=== PATIENT | male | born 1955 | race African-American/Black ===

== ENCOUNTER 2018-08-05 05:38 | Inpatient (IN) | payer OTHER ==
[2018-08-05] VITALS (17 sets, daily range): BP systolic 128–154; BP diastolic 64–84
[~2018-08-05] VITALS: Ht 175.3 cm; Wt 90.7 kg
[~2018-08-05 05:38] MED LIST: AMLODIPINE BESYL5 MG ORAL; ASPIR 8181 MG ORAL; GABAPENTIN300 MG ORAL; HYDROCODON-ACE1 EA16 ORAL; HYTRIN10 MG PO; NAPROXEN250 M1 PO; RELAFEN500 MG PO
[2018-08-05] MEDS ORDERED: ceFAZolin sod 1 GM in D5W 55 ML IVPB ONE (07:00)
[2018-08-05] MEDS ORDERED: Thrombin 5000 units spray kit TOPIC ONE ×4 (07:05→12:59)
[2018-08-05] MEDS ORDERED: Ropivacaine 5mg/ml Vial 30ml INJ ONE (07:06)
[2018-08-05] MEDS ORDERED: Gelfoam Size TOPIC ONE ×5 (07:06→11:30)
[2018-08-05] MEDS ORDERED: Thrombin 5000 units TOPIC ONE ×4 (07:06→11:41)
[2018-08-05] MEDS ORDERED: Lidocaine 1% 10mg/ml/Epi 0.005mg/ml 30ml vial INJ ONE (07:06)
[2018-08-05] MEDS ORDERED: Gelfoam Absorbable 1gm powder pkt TOPIC ONE ×3 (07:06→09:34)
[2018-08-05] MEDS ORDERED: Bacitracin 50000 Units Vial ONE (07:07)
[2018-08-05] MEDS ORDERED: fentaNYL 100 mcg/2 mL IV ONE (07:07)
[2018-08-05] MEDS ORDERED: Midazolam 2mg/2ml Inj ONE (07:07)
[2018-08-05] MEDS ORDERED: Lidocaine 1% MPF 10mg/ml 5ml ONE (07:08)
[2018-08-05] MEDS ORDERED: Iothalamate Meglumine 60% 30ML INJ ONE ×2 (07:13→08:25)
--- NOTE | 2018-08-05 07:17 | Pre-Procedure Note/Attestation ---
Pre-Procedure Note/Attestation Complete Prior to Procedure Planned Procedure: bilateral Procedure Narrative: cystoscopy, placement of bilateral ureteral stents Indications for Procedure Pre-Operative Diagnosis: for identification of ureters during spine surgery Attestation I attest that I discussed the nature of the procedure; its benefits; risks and complications; and alternatives (and the risks and benefits of such alternatives ), prior to the procedure, with the patient (or the patient's legal access service representative). I attest that, if there was a reasonable possibility of needing a blood transfusion, the patient (or the patient's legal access service representative) was given the [facility] standardized written summary, pursuant to the Gilles Marianne Blood Safety Act ([place] Health and Safety Code # 1645, as amended). I attest that I re-evaluated the patient just prior to the surgery and that there has been no change in the patient's H&P, except as documented below: Graeme Chaparro MD Aug 05, 2018 07:17
[2018-08-05] MEDS ORDERED: Succinylcholine 20mg/ml 10ml vial ONE (07:24)
[2018-08-05] MEDS ORDERED: Zemuron 50mg/5ml Inj IV ONE ×2 (07:24→08:53)
[2018-08-05] MEDS ORDERED: LR 1000ml ONE (07:30)
[2018-08-05] MEDS ORDERED: Sterile Water Irrig 1000ml IRRIG ONE (07:30)
[2018-08-05] MEDS ORDERED: Sterile Water For Irrig 2000ml IRRIG ONE (07:30)
[2018-08-05] MEDS ORDERED: Propofol 1,000mg/ 100ml btl IV ONE (07:30)
[2018-08-05] MEDS ORDERED: Neostigmine 1mg/ml 10ml Inj ONE (07:30)
[2018-08-05] MEDS ORDERED: Heparin 5000 units/ml inj ONE (07:35)
[2018-08-05] MEDS ORDERED: ePHEDrine 50mg/ml Inj ONE (08:28)
--- NOTE | 2018-08-05 08:31 | Consultation ---
DATE OF CONSULTATION: 08/05/2018 CONSULTING PHYSICIAN: Graeme Chaparro M.D. REFERRING PHYSICIAN: Gamaliel Branch M.D. REASON FOR CONSULTATION: For evaluation and placement of ureteral stents for spine surgery. HISTORY OF PRESENT ILLNESS: This is a 63-year-old gentleman. He has a history of work-related back injury. He has a previous back surgery. He is being brought back for a L5-S1 decompression. I was asked to place ureteral stents. PAST MEDICAL HISTORY: Significant for above. The patient also has history of prostate cancer, status post radiation in 2016. MEDICATIONS: His medications list was reviewed. ALLERGIES: No known drug allergies. PHYSICAL EXAMINATION: ABDOMEN: Soft. No CVA tenderness. LABORATORY AND DIAGNOSTIC DATA: His preoperative diagnostic studies were reviewed. He did have 1+ to 2+ blood in his recent UA. His creatinine is 1.11. IMPRESSION: The patient is to undergo spine surgery. He also has a history of prostate cancer and radiation and positive urine. PLAN: I was asked to place ureteral stents preoperatively for identification of the ureter during the surgery. I did speak to Dr. Branch and Dr. Schmid, they have requested placement of bilateral stents. I did discuss this with the patient in extensive detail including my involvement with possible risks and complications, but all his questions were answered. I will plan to proceed. Thank you for this consultation. Graeme Chaparro M.D. DR: CAROLYNE JOB#: [id number] CC:
--- NOTE | 2018-08-05 09:08 | Anethesia Preoperative Eval ---
Anesthesia Pre-op PMH/ROS General Date of Evaluation: Aug 05, 2018 Time of Evaluation: 07:20 Anesthesiologist: Hazel ASA Score: ASA 2 Mallampati Score Class I : Soft palate, uvula, fauces, pillars visible Class II: Soft palate, uvula, fauces visible Class III: Soft palate, base of uvula visible Class IV: Only hard plate visible Mallampati Classification: Class II Surgeon: Jose Carlos Diagnosis: Lumbar radiculopathy Surgical Procedure: Ant. lumbar discectomy fusion, revision of posterior lumbar hardwear Anesthesia History: none Family History: no anesthesia problems Allergies: Coded Allergies: No Known Allergies (Unverified , 08/04/18) Patient NPO?: Yes NPO Date: Aug 04, 2018 NPO Time: 2100 Past Medical History Cardiovascular: Reports: HTN; Denies: CAD, UT, valve dz, arrhythmia, other Pulmonary: Denies: asthma, COPD, JOSSELYN, other Gastrointestinal/Genitourinary: Reports: GERD, other - prostate CA s/p radiation treatment; Denies: CRI, ESRD Neurologic/Psychiatric: Reports: other - chronic pain; Denies: dementia, CVA, depression/anxiety, TIA Endocrine: Reports: DM - borderline; Denies: hypothyroidism, steroids, other HEENT: Denies: cataract (L), cataract (R), glaucoma, [place] (L), [place] (R), other Hematology/Immune: Denies: anemia, DVT, bleeding disorder, other Musculoskeletal/Integumentary: Denies: OA, RA, DJD, DDD, edema, other PMH Narrative: as above PSxH Narrative: Posterior lumbar fusion Anesthesia Pre-op Phys. Exam Physician Exam Last Vital Signs Date Time Temp Pulse Resp B/P (MAP) Pulse Ox O2 Delivery O2 Flow Rate FiO2 08/05/18 06:26 97.7 74 20 154/84 (107) 99 08/05/18 06:11 Room Air Constitutional: NAD Neurologic: CN 2-12 intact Cardiovascular: RRR Respiratory: CTA Gastrointestinal: S/NT/ND Airway Exam Mallampati Score: Class III MO: limited Neck: short stiff ROM: limited Teeth: missing, broken Dentures: no upper, no lower Anesthesia Pre-op A/P Labs see chart Studies Pre-op Studies: EKG - NSR Risk Assessment & Plan Assessment: ASA 2 Plan: GA with ETT neuromonitoring, supine and prone positions Status Change Before Surgery: No Pre-Antibiotics Drug: Ancef 2gr. Given Within 1 Hr of Incision: Yes Time Given: 08:25 Alirio Oliva MD Aug 05, 2018 09:08
[2018-08-05] MEDS ORDERED: Acetaminophen (Non formulary) 100 ML IV ONE (09:15)
--- NOTE | 2018-08-05 09:18 | Pre-Procedure Note/Attestation ---
Pre-Procedure Note/Attestation Complete Prior to Procedure Procedure Narrative: L5s1 Ant post fusion with decompression l4-s1, HWR l45 Indications for Procedure Pre-Operative Diagnosis: sp fusion L45 with discopathy l5s1 / stenosis Attestation I attest that I discussed the nature of the procedure; its benefits; risks and complications; and alternatives (and the risks and benefits of such alternatives ), prior to the procedure, with the patient (or the patient's legal access representative). I attest that, if there was a reasonable possibility of needing a blood transfusion, the patient (or the patient's legal access representative) was given the [facility] standardized written summary, pursuant to the Gilles Marianne Blood Safety Act ([place] Health and Safety Code # 1645, as amended). I attest that I re-evaluated the patient just prior to the surgery and that there has been no change in the patient's H&P, except as documented below: Gamaliel Branch MD Aug 05, 2018 09:17
[2018-08-05] MEDS ORDERED: Sodium Chloride 10ml vial INJ ONE ×2 (09:29→10:29)
[2018-08-05] MEDS ORDERED: Bacitracin 50000 Units Vial IRRIG ONE ×2 (09:31→14:12)
[2018-08-05] MEDS ORDERED: NS Irrig 1000ml IRRIG ONE ×2 (09:32→14:12)
[2018-08-05] MEDS ORDERED: Morphine Sulfate 10mg/ml Inj ONE (10:26)
--- NOTE | 2018-08-05 10:39 | Brief Operative Note ---
Immediate Post Operative Note Operative Note Pre-op Diagnosis: sp fusion L45 with discopathy l5s1 / stenosis Procedure: ant post fusion l5s1, decompression L45S1 R side, HWR L45 Post-op Diagnosis: same as pre-op Findings: consistent w/pre-op dx studies Surgeon: christin Additional Surgeons: Krysta Schmid Anesthesiologist: marty Anesthesia: general Specimen: yes Complications: none Condition: stable Fluids: 1500 Estimated Blood Loss: volume - 150 Drains: hemovac Implant(s) used?: Yes - 4web cage, iminent spine plate, ISP dual lamina, signafuse, bmp Gamaliel Branch MD Aug 05, 2018 10:39
[2018-08-05] MEDS ORDERED: LR 1000ml 1,000 ML IVLG SCH (11:10)
[2018-08-05] MEDS ORDERED: Glycopyrrolate 0.2mg/ml 1ml Vial ONE (11:14)
[2018-08-05] MEDS ORDERED: Meperidine 50mg/ml Inj(FOR RIGORS ONLY) IV PRN (11:15)
[2018-08-05] MEDS ORDERED: Ketorolac 30mg Inj IV PRN (11:15)
[2018-08-05] MEDS ORDERED: fentaNYL 100 mcg/2 mL IV PRN (11:15)
[2018-08-05] MEDS ORDERED: DiphenhydrAMINE 50mg/ml Inj IVP PRN (11:15)
[2018-08-05] MEDS ORDERED: Propofol 200mg/20ml IV ONE ×2 (11:18→12:11)
[2018-08-05] MEDS ORDERED: Bupivacaine w/Epi 0.5% 30ml Vial INJ ONE (11:25)
[2018-08-05] MEDS ORDERED: Vancomycin 1gm inj IVPB ONE ×2 (13:02→14:13)
--- NOTE | 2018-08-05 14:01 | Operative Note - Dictated ---
DATE OF OPERATION: 08/05/2018 SURGEON: Gamaliel Branch M.D. ADDITIONAL SURGEONS: 1. Dheeraj Schmid M.D. 2. Graeme Chaparro M.D. PREOPERATIVE DIAGNOSES: 1. Status post L4-L5 spinal fusion with residual L4-L5 and L5-S1 right-sided stenosis with advanced discogenic collapse, L5-S1. 2. Status post prior radiation for prostate CA requiring stent placement for safe approach to the spine. OPERATION PERFORMED: 1. Wide and radical discectomy L5-S1. 2. Interbody fusion L5-S1 using 4WEB cage/BMP/local autograft/Signafuse bone. 3. Anterior plating using Eminent Spine Fang plate. 4. Use of fluoroscopy. ESTIMATED BLOOD LOSS: Minimal. COMPLICATIONS: None. INDICATIONS: The patient is a very pleasant gentleman, who sustained an injury to his lower back requiring spinal fusion at L4-L5. Over time, he had developed advanced discogenic collapse at L5-S1 with radiculopathic findings on the right lower extremity, L4-5, L5-S1. Surgical options were recommended. The patient elected to proceed with anterior interbody fusion followed by posterior decompression and instrumentation. The procedure was confounded by the fact that he had had prior anterior pelvic radiation for prostate CA necessitating the placement of stents in the ureters to avoid possible damage to the ureters during exposure. The patient elected to proceed. RISKS NOTE: The patient was explained in detail, risks and benefits of surgery to include, but not be limited to those of bleeding, infection, damage to nerves, vessels, tendons, and anesthetic risks including allergic reaction, aspiration, and possibly . OPERATIVE PROCEDURE IN DETAIL: The patient was taken to the operating suite. After general endotracheal anesthesia was obtained, he was placed into lithotomy position and a cystoscopy was performed and stent placement was performed by Dr. Chaparro, into the bilateral ureters. At this point, once the stents were placed, the patient was repositioned on the radiolucent table. The abdomen was prepped and draped in usual sterile fashion and anterior retroperitoneal approach was performed by Dr. Schmid and this will be dictated separately. At this point, exposure of the L5-S1 level was safely achieved. Wide and radical discectomy was performed using scalpel, curettes, pituitaries, Kerrison punches. Interbody spacers were placed to obtain adequate distraction. At this point, once the distraction was achieved and the lateral recesses of the disc were cleaned up, decision was made to put certain trials in. The ideal trial was a 10 mm high x 12-degree lordotic 4WEB cage. Due to the patient's history of L5 pelvic irradiation, it was elected to, in addition to Signafuse to also place a BMP so as to ensure a solid anterior fusion. The appropriate size cage was chosen and inserted and fluoroscopically was confirmed to be in good position with excellent reduction of the disc height loss. At this juncture, due to the extensive scarring from the vena cava, decision was made to place a plate at the S1 level and angulate cephalad to prevent dislodgement of the cage. The anterior osteophytes were removed extensively so as to have flush placement of the cage. Additional Signafuse was then placed along the anterior and lateral aspects of the cage. At this point, meticulous hemostasis was achieved. Closure will be dictated separately by Dr. Schmid. Gamaliel Branch M.D. DR: SUZANNE JOB#: [id number] CC:
--- NOTE | 2018-08-05 14:10 | Immediate Post-Op Evaluation ---
Immediate Post-Op Evalulation Immediate Post-Op Evalulation Procedure: Anterior L5-S1 discectomy fusion, posterior L5-S1 revision of hardwear with Date of Evaluation: Aug 05, 2018 Time of Evaluation: 14:09 IV Fluids: 1600 Blood Products: Albumin 250 Estimated Blood Loss: 200 Urinary Output: 150 Blood Pressure Systolic: 132 Blood Pressure Diastolic: 64 Pulse Rate: 86 Respiratory Rate: 22 O2 Sat by Pulse Oximetry: 99 Temperature (Fahrenheit): 98.3 Pain Score (1-10): 1 Nausea: No Vomiting: No Complications none Patient Status: reacts, patent, extubated, none Hydration Status: adequate Alirio Oliva MD Aug 05, 2018 14:10
[2018-08-05] MEDS ORDERED: Rate Change PCA 1 Each MISC PRN (15:45)
--- NOTE | 2018-08-05 15:59 | Diagnostic Imaging Report ---
INDICATION: Pain, intraoperative TECHNIQUE: Intraoperative imaging Fluoroscopy time: 34.9 seconds Total dose: 15.53 mGy Total number of images: 5 COMPARISON: None FINDINGS: Intraoperative images demonstrate a localizer tool projected anterior to the L5-S1 disc. Intraspinous device already in place. Also already in place is a disc spacer and lateral fusion hardware at L4-5. Subsequent images demonstrate placement of a disc spacer and anterior fusion hardware at L5-S1., Removal of the L4-5 interspinous device, placement of an L5-S1 interspinous device IMPRESSION: Intraoperative imaging, as described
--- NOTE | 2018-08-05 16:01 | Diagnostic Imaging Report ---
INDICATION: Pain, intraoperative TECHNIQUE: Intraoperative imaging Fluoroscopy time: 95.5 seconds Total dose: 18.3 mGy Total number of images: 7 COMPARISON: None FINDINGS: Placement of bilateral nephroureteral stents and opacification of the bilateral proximal ureters and renal collecting systems is documented IMPRESSION: Intraoperative imaging, as described
[2018-08-05] MEDS ORDERED: PCA HYDROmorphone 30mg/30ml Syr IV PRN (16:30)
[2018-08-05] MEDS ORDERED: Naloxone 0.4mg/ml Inj IV PRN (16:30)
[2018-08-05] MEDS ORDERED: Milk of Magnesia 30ml Ud ORAL PRN (18:00)
[2018-08-05] MEDS ORDERED: Metoclopramide 10mg/2ml Inj IVP PRN (18:00)
[2018-08-05] MEDS: Docusate 100mg cap ORAL SCH (18:02)
[2018-08-05] MEDS: D5 1/2NS 1,000 ML IV SCH (18:02)
[2018-08-05] MEDS ORDERED: Chloraseptic Spray 20mL Bottle ORAL SCH (18:30)
[2018-08-05] MEDS ORDERED: Chloraseptic Spray 20mL Bottle ORAL PRN (18:30)
[2018-08-05] MEDS: ceFAZolin sod 1 GM in D5W 55 ML IV SCH ×2 (18:59→23:44)
[2018-08-05] MEDS: PCA shift volume MISC SCH (19:00)
[2018-08-05] MEDS ORDERED: PCA Education Pamphlet MISC ONE (20:00)
[2018-08-05] MEDS: Tamsulosin 0.4mg cap ORAL SCH (21:21)
[2018-08-06] MEDS: D5 1/2NS 1,000 ML IV SCH ×3 (02:54→21:48)
[2018-08-06] MEDS: HYDROmorphone 1mg/ml Carpuject SUBQ PRN ×3 (03:28→20:47)
[2018-08-06 04:48] VITALS: BP 139/65
--- NOTE | 2018-08-06 05:15 | Consultation ---
DATE OF CONSULTATION: 08/05/2018 CONSULTING PHYSICIAN: Dante Patterson M.D. REFERRING PHYSICIAN: Gamaliel Branch M.D. REASON FOR CONSULTATION: Acute pain consult. HISTORY OF PRESENT ILLNESS: Dear Dr. Gamaliel Branch, Thank you kindly for consulting me to evaluate and render an opinion as to how to proceed in the management of the patient's acute postoperative lumbar spine pain after multiple level lumbar spine fusion surgery with instrumentation today. The patient is a pleasant 63-year-old -[place] gentleman, who injured his lumbar spine in a work-related injury. Today, he underwent extensive lumbar spine fusion surgery via the anterior-approach and posterior-approach. He complains significant discomfort postoperatively. You consulted me to help with his pain control. I saw the patient at bedside. Discussed the case with the recovery room nurse, ELE Morrison, along with yourself, Dr. Branch, and the hospital pharmacist, Kareem. I spent over 75 minutes in consultation with an additional 30 minutes in medical record review. Multiple records were reviewed from today's date of surgery at [facility] including consent for surgical treatment, consent for anesthesia, consent for blood products, medication administration record, medication reconciliation order form, PACU record, PACU orders, anesthesia record, pre and post anesthesia evaluation record, postoperative spine surgery operative report along with postoperative spine surgery physician orders by Dr. Gamaliel Branch, guidelines for prophylactic antibiotics, and guidelines for DVT prophylaxis. for cognitive disability, , initial nursing assessment, 24-hour medical/surgical flow sheet, vital sign documentation sheet, further reviewed include preoperative History and Physical by Lew Tran on 07/29/2018 along with laboratory studies and urine toxicology reports. Multiple records reviewed from Dr. Gamaliel Branch's outpatient clinic including his progress report on 07/22/2018. I reviewed utilization review and surgical authorization records from insurance carrier, [employer], dated 05/14/2018, authorizing extensive lumbar spine fusion surgery with instrumentation as certified. PAST MEDICAL HISTORY: 1. Acute postoperative lumbar spine pain, status post multiple level anterior-approach and posterior-approach. 2. Lumbar spine fusion surgery with instrumentation by Dr. Gamaliel Branch in July 2018. 3. Work-related injury. 4. Chronic pain syndrome. 5. Hypertension. 6. BPH. 7. Borderline diabetes. MEDICATIONS: At home include hydrocodone 7.5 mg b.i.d., Neurontin 300 mg b.i.d., topical marijuana cream at least once per week, terazosin, Norvasc, NSAIDs, and baby aspirin. PAST SURGICAL HISTORY: Previous back surgery in November 2014. FAMILY HISTORY: Prostate disease. SOCIAL HISTORY: The patient denies tobacco or alcohol usage. He does use topical marijuana cream at least once per week. He is accompanied at the bedside by his brother. ALLERGIES: No known drug allergies. REVIEW OF SYSTEMS: Per Dr. Tran. PHYSICAL EXAMINATION: VITAL SIGNS: Age 63, height 5 feet 8 inches, weight 181 pounds, and body mass index 27. Vital signs in the medial record. HEENT: Normocephalic and atraumatic. Poor dentition. Extraocular muscles intact. No Cochran's palsy. No Princess syndrome. No nuchal rigidity. CHEST: Clear to auscultation. Bibasilar crackles likely secondary to postoperative atelectasis. HEART: Regular rate and rhythm. Positive S4. Normal S1 and S2. No S3 appreciated. ABDOMEN: Painful by incision area with minimal distention appreciated. No rebound or guarding. EXTREMITIES: Lumbar spine, painful by midline without any significant paraspinal muscle spasms noted. Moving all extremities x4. GENITOURINARY: Acosta catheter in place. NEUROLOGIC: Detailed neurologic exam per Dr. Gamaliel Branch. LABORATORY AND DIAGNOSTIC DATA: Diagnostic testing shows preoperative laboratory studies on 07/29/2018, PTT 23. INR 1.1. Sodium 142, potassium 3.5, chloride 104, bicarbonate 30, BUN 10, and creatinine 1.1. Calcium 9.2. Total protein 6.9 and albumin 4.1. AST 16, ALT 15, and total bilirubin 0.5. White count 4, hematocrit 38, and platelets 200,000. Urine toxicology is positive for marijuana. A 12-lead EKG shows normal sinus rhythm, left axis deviation, right bundle-branch block, and heart rate 72. Preoperative chest x-ray shows no acute cardiopulmonary disease, dated 07/29/2018. MRI of lumbar spine dated 04/01/2018 impression, previous posterior fusion, L4-L5; L5 retrolisthesis on S1 measuring 3 to 4 mm with a 4 mm diffuse broad-based disk bulge; and L2-L3 and L3-L4 with 3 to 4 mm asymmetric broad-based disk bulges. IMPRESSION: 1. Acute postoperative lumbar spine pain, status post multiple level anterior-approach and posterior-approach. 2. Lumbar spine fusion surgery with instrumentation by Dr. Gamaliel Branch in July 2018. 3. Work-related injury. 4. Chronic pain syndrome. 5. Hypertension. 6. BPH. 7. Borderline diabetes. TREATMENT AND RECOMMENDATIONS: After this extensive revision lumbar spine surgery with fusion and instrumentation today, I spoke with the hospital pharmacist, Kareem, to initiate Dilaudid LEGAL ADVISOR. I started with 0.2 mg demand button dose along with a 10-minute lockout and 4 mg 4-hour limit. There will be no underlying basal rate or continuous rate to reduce the risk for respiratory depression in this elderly gentleman. I restarted his baseline Neurontin, which he uses chronically for his chronic pain syndrome. The patient does use Stonewall at least twice per day. I will increase the dosing to 10 mg here in the hospital at a frequency of one tablet orally every 3 hours p.r.n. for mild pain. I have added a breakthrough dose of Dilaudid 1 mg subcutaneously every 3 hours p.r.n. for severe breakthrough pain. The patient does not use muscle relaxants or benzodiazepines. Preoperatively, I would avoid these agents for now. I would concentrate on his current Mu-opioid narcotic analgesics for primary pain control. I did suggest the patient that we use the Marinol here in the hospital since he does use marijuana at least once per week. At this time, the patient did decline a trial, but if the patient's pain control seems to be poorly managed, I would consider using oral Marinol later during this hospitalization. I have ordered incentive spirometer to encourage good pulmonary toilet. I will defer DVT prophylaxis to the surgeon. The patient will need a prescription for Stonewall at the time of discharge as he does fill his prescription normally with his outpatient primary doctor, but his supply is running low. Dante Patterson M.D. DR: MARYA JOB#: [id number] CC:
[2018-08-06 06:39] LABS: BASOPHILS % (AUTO) 0.6 % (0.0-2.0); EOSINOPHILS % (AUTO) 0.1 % (0.0-3.0); HEMATOCRIT 34.7 % (42.0-52.0); HEMOGLOBIN 11.8 G/DL (14.2-18.0); LYMPHOCYTES % (AUTO) 19.2 % (20.0-45.0); MEAN CORPUSCULAR VOLUME 92 FL (80-99); MONOCYTES % (AUTO) 9.7 % (1.0-10.0); NEUTROPHILS % (AUTO) 70.5 % (45.0-75.0); PLATELET COUNT 151 K/UL (150-450); RED BLOOD COUNT 3.79 M/UL (4.70-6.10); RED CELL DISTRIBUTION WIDTH 10.7 % (11.6-14.8); WHITE BLOOD COUNT 7.1 K/UL (4.8-10.8)
[2018-08-06] MEDS: PCA shift volume MISC SCH ×2 (07:00→19:12)
[2018-08-06 07:22] LABS: ANION GAP 7 mmol/L (5-15); CARBON DIOXIDE 29 MMOL/L (21-32); CHLORIDE 109 MMOL/L (98-107); POTASSIUM 3.2 MMOL/L (3.5-5.1); SODIUM 144 MMOL/L (136-145)
--- NOTE | 2018-08-06 07:34 | Brief Operative Note ---
Immediate Post Operative Note Operative Note Pre-op Diagnosis: for identification of ureters during spine surgery Procedure: cysto, placement of bilateral ureteral stents, retrograde pyelograms, cystogram Post-op Diagnosis: same as pre-op Surgeon: arabella Anesthesiologist: marty Anesthesia: general Specimen: none Complications: none Condition: stable Fluids: NS Estimated Blood Loss: minimal Drains: none Implant(s) used?: No Graeme Chaparro MD Aug 06, 2018 07:34
--- NOTE | 2018-08-06 07:37 | Urology Progress Note ---
Assessment/Plan Assessment/Plan POD # 1, bilateral ureteral stents urinary retention prostate ca hx/XRT cont flomax plan voiding trial tomorrow morning Subjective Allergies: Coded Allergies: No Known Allergies (Unverified , 08/04/18) Subjective feels fair Objective Last 24 Hour Vital Signs Date Time Temp Pulse Resp B/P (MAP) Pulse Ox O2 Delivery O2 Flow Rate FiO2 08/06/18 04:48 98.5 81 19 139/65 (89) 100 08/06/18 04:00 15 08/06/18 00:00 15 08/05/18 21:21 99.2 82 18 144/68 (93) 98 08/05/18 21:00 Nasal Cannula 3.0 08/05/18 20:00 98.4 83 19 138/73 (94) 97 08/05/18 20:00 15 08/05/18 17:41 99.9 98 20 136/72 (93) 99 08/05/18 16:56 13 08/05/18 16:56 98.6 89 20 136/71 100 Nasal Cannula 3 08/05/18 16:15 91 18 139/76 100 Nasal Cannula 3 08/05/18 16:00 98 17 136/70 100 Nasal Cannula 3 08/05/18 15:53 13 08/05/18 15:45 98.6 94 17 134/72 100 Nasal Cannula 3 08/05/18 15:30 98.4 89 17 140/72 100 Nasal Cannula 3 08/05/18 15:20 87 15 128/64 100 Nasal Cannula 3 08/05/18 15:05 88 17 139/74 100 Nasal Cannula 3 08/05/18 14:51 91 15 147/77 100 Simple Mask 6 08/05/18 14:36 92 18 144/75 100 Simple Mask 6 08/05/18 14:20 95 17 142/74 100 Simple Mask 6 08/05/18 14:10 95 16 131/67 100 Simple Mask 6 08/05/18 14:10 86 22 99 08/05/18 14:06 91 22 135/64 100 Simple Mask 6 08/05/18 14:01 98.6 94 21 132/64 100 Simple Mask 6 Intake and Output 08/05/18 08/06/18 19:00 07:00 Intake Total 2400 ml 1100 ml Output Total 720 ml 1320 ml Balance 1680 ml -220 ml Intake IV Total 2150 ml 1100 ml Other 250 ml Output Urine Total 300 ml 1200 ml Drainage Total 140 ml 120 ml Estimated Blood Loss 200 ml Other 80 ml Current Medications Medications (Trade) Dose Ordered Sig/Fanta Route PRN Reason Start Time Stop Time Status Last Admin Dose Admin Acetaminophen (Tylenol) 650 mg Q4H PRN ORAL headache or temp>101 08/05/18 18:00 09/04/18 17:59 Acetaminophen/ Hydrocodone Bitart (Bricelyn 10/325) 1 tab Q3H PRN ORAL Moderate breakthrough pain 08/05/18 18:00 08/12/18 17:59 Al Hydroxide/Mg Hydroxide (Mylanta) 30 ml Q6H PRN ORAL gerd/dyspepsia 08/05/18 18:00 09/04/18 17:59 Cefazolin Sodium 1 gm/Dextrose 55 ml @ 110 mls/hr Q8HR@0030,0830,1630 IV 08/05/18 18:30 08/06/18 08:59 08/05/18 23:44 Clonidine HCl (Catapres Tab) 0.1 mg Q8H PRN ORAL SBP>160mmHg 08/05/18 18:00 09/04/18 17:59 Dextrose/Sodium Chloride 1,000 ml @ 100 mls/hr Q10H IV 08/05/18 18:00 09/04/18 17:59 08/06/18 02:54 Diphenhydramine HCl (Benadryl) 25 mg Q6H PRN ORAL Itching 08/05/18 18:00 09/04/18 17:59 Docusate Sodium (Colace) 100 mg TWICE A DAY ORAL 08/05/18 18:00 09/04/18 17:59 08/05/18 18:02 Gabapentin (Neurontin) 300 mg Q12HR ORAL 08/05/18 18:00 09/04/18 17:59 08/05/18 18:09 Hydromorphone HCl 30 ml @ 0 mls/hr Q24H PRN IV For Pain 08/05/18 16:30 08/07/18 16:29 08/05/18 15:53 Hydromorphone HCl (Dilaudid) 1 mg Q3H PRN SUBQ Severe Breakthru Pain (>7) 08/05/18 18:00 08/12/18 17:59 08/06/18 06:28 Magnesium Hydroxide (Mom) 30 ml QIDPRN PRN ORAL Constipation 08/05/18 18:00 09/04/18 17:59 Miscellaneous Medication (RETURNED MATERIALS INSPECTOR Rate Change) 1 ea DAILY PRN MISC RETURNED MATERIALS INSPECTOR RATE CHANGE 08/05/18 15:45 08/07/18 15:44 Miscellaneous Medication (RETURNED MATERIALS INSPECTOR shift volume) 1 ea Q12HR@0700,1900 MISC 08/05/18 19:00 08/07/18 18:59 08/05/18 19:00 Naloxone HCl (Narcan) 0.1 mg PRN IV . 08/05/18 16:30 08/07/18 16:29 Ondansetron HCl (Zofran) 4 mg Q4H PRN IVP Nausea & Vomiting 08/05/18 18:00 09/04/18 17:59 08/06/18 03:27 Pantoprazole (Protonix) 40 mg BEDTIME ORAL 08/05/18 21:00 09/04/18 20:59 08/05/18 21:21 Phenol/Menthol (Chloraseptic) 1 spray 1749 ORAL 08/05/18 18:30 09/04/18 19:30 Phenol/Menthol (Chloraseptic) 1 spray Q3H PRN ORAL sore throat 08/05/18 18:30 09/04/18 18:29 08/05/18 18:59 Promethazine HCl (Phenergan) 12.5 mg Q8HR PRN IM Nausea & Vomiting 08/05/18 18:00 09/04/18 17:59 Tamsulosin HCl (Flomax) 0.4 mg BEDTIME ORAL 08/05/18 21:00 09/04/18 20:59 08/05/18 21:21 Laboratory Tests 08/06/18 05:20: White Blood Count 7.1, Red Blood Count 3.79L, Hemoglobin 11.8L, Hematocrit 34.7L , Mean Corpuscular Volume 92, Mean Corpuscular Hemoglobin 31.1H, Mean Corpuscular Hemoglobin Concent 34.0, Red Cell Distribution Width 10.7L, Platelet Count 151, Mean Platelet Volume 6.3L, Neutrophils (%) (Auto) 70.5, Lymphocytes (%) (Auto) 19.2L, Monocytes (%) (Auto) 9.7, Eosinophils (%) (Auto) 0.1, Basophils (%) (Auto) 0.6, Sodium Level 144, Potassium Level 3.2L, Chloride Level 109H, Carbon Dioxide Level 29, Anion Gap 7, Blood Urea Nitrogen [Pending] , Creatinine [Pending], Estimat Glomerular Filtration Rate [Pending], Glucose Level [Pending], Calcium Level [Pending] Height (Feet): 5 Height (Inches): 9.00 Weight (Pounds): 200 Objective urine is grossly yellow ChanoshGraeme mckinley MD Aug 06, 2018 07:37
[2018-08-06 07:42] LABS: BLOOD UREA NITROGEN 9 mg/dL (7-18); CREATININE 1.1 MG/DL (0.55-1.30)
--- NOTE | 2018-08-06 08:27 | Orthopedic Spine Progress Note ---
Ortho Spine - Progress Note Subjective Symptoms: c/o post-op back pain, improved - as compared to pre-op Objective Vital Signs: Last 24 Hour Vital Signs Date Time Temp Pulse Resp B/P (MAP) Pulse Ox O2 Delivery O2 Flow Rate FiO2 08/06/18 08:16 Nasal Cannula 3.0 08/06/18 08:00 18 08/06/18 04:48 98.5 81 19 139/65 (89) 100 08/06/18 04:00 15 08/06/18 00:00 15 08/05/18 21:21 99.2 82 18 144/68 (93) 98 08/05/18 21:00 Nasal Cannula 3.0 08/05/18 20:00 98.4 83 19 138/73 (94) 97 08/05/18 20:00 15 08/05/18 17:41 99.9 98 20 136/72 (93) 99 08/05/18 16:56 13 08/05/18 16:56 98.6 89 20 136/71 100 Nasal Cannula 3 08/05/18 16:15 91 18 139/76 100 Nasal Cannula 3 08/05/18 16:00 98 17 136/70 100 Nasal Cannula 3 08/05/18 15:53 13 08/05/18 15:45 98.6 94 17 134/72 100 Nasal Cannula 3 08/05/18 15:30 98.4 89 17 140/72 100 Nasal Cannula 3 08/05/18 15:20 87 15 128/64 100 Nasal Cannula 3 08/05/18 15:05 88 17 139/74 100 Nasal Cannula 3 08/05/18 14:51 91 15 147/77 100 Simple Mask 6 08/05/18 14:36 92 18 144/75 100 Simple Mask 6 08/05/18 14:20 95 17 142/74 100 Simple Mask 6 08/05/18 14:10 95 16 131/67 100 Simple Mask 6 08/05/18 14:10 86 22 99 08/05/18 14:06 91 22 135/64 100 Simple Mask 6 08/05/18 14:01 98.6 94 21 132/64 100 Simple Mask 6 I&O: Intake and Output 08/05/18 08/06/18 19:00 07:00 Intake Total 2400 ml 1100 ml Output Total 720 ml 1320 ml Balance 1680 ml -220 ml Intake IV Total 2150 ml 1100 ml Other 250 ml Output Urine Total 300 ml 1200 ml Drainage Total 140 ml 120 ml Estimated Blood Loss 200 ml Other 80 ml Wound: clean, intact Drains: hemovac Neuro Status: normal Assessment Procedure Performed: ant post fusion l5s1, decompression L45S1 R side, HWR L45 Plan Plan: PT, pain management, continue antibiotics, continue drain Gamaliel Branch MD Aug 06, 2018 08:27
[2018-08-06] MEDS: ceFAZolin sod 1 GM in D5W 55 ML IV SCH (08:39)
[2018-08-06] MEDS: Docusate 100mg cap ORAL SCH ×2 (08:46→17:16)
[2018-08-06 09:00] VITALS: BP 131/62
[2018-08-06 10:14] LABS: APPEARANCE,URINE SLIGHTLY CLOUDY; BILIRUBIN, URINE NEGATIVE (NEGATIVE); COLOR,URINE PALE YELLOW; GLUCOSE, URINE (UA) NEGATIVE (NEGATIVE); KETONES,URINE NEGATIVE (NEGATIVE); LEUKOCYTE ESTERASE ,URINE 2+ (NEGATIVE); NITRITE,URINE NEGATIVE (NEGATIVE); PH,URINE 6 (4.5-8.0); PROTEIN,URINE 3+ (NEGATIVE); UROBILINOGEN,URINE NORMAL MG/DL (0.0-1.0)
[2018-08-06 12:30] VITALS: BP 152/59
--- NOTE | 2018-08-06 13:47 | Diagnostic Imaging Report ---
Indication: Chest pain Technique: One view of the chest Comparison: none Findings: Lungs and pleural spaces are clear. Heart size is normal Impression: No acute process
[2018-08-06] MEDS: ceFAZolin sod 1 GM in D5W 55 ML IVPB SCH ×2 (15:13→21:41)
--- NOTE | 2018-08-06 15:30 | Operative Note - Dictated ---
DATE OF OPERATION: 08/05/2018 PREOPERATIVE DIAGNOSIS: The patient with history of radiculopathy, previous lumbar fusion, and discogenic disease. He is to undergo L5-S1 diskectomy with fusion. I was asked to place bilateral ureteral stents for identification of the ureter during the procedure. POSTOPERATIVE DIAGNOSIS: The patient with history of radiculopathy, previous lumbar fusion, and discogenic disease. He is to undergo L5-S1 diskectomy with fusion. I was asked to place bilateral ureteral stents for identification of the ureter during the procedure. PROCEDURE PERFORMED: 1. Cystoscopy. 2. Urethral calibration. 3. Placement of bilateral open-ended ureteral stents. 4. Bilateral retrograde pyelogram. 5. Cystogram. OPERATING SURGEON: Graeme Chaparro M.D. ANESTHESIOLOGIST: Alirio Oliva M.D. ANESTHESIA: General. INDICATION FOR PROCEDURE: This is a pleasant 63-year-old male. He has a history of work related back injury. He has had previous lumbar fusions. He still has a discogenic collapse and he is to undergo the above procedure by Dr. Branch. The patient does have a history of prostate cancer. He has had external beam radiation a couple years ago. I was asked to place bilateral open-ended stents for identification of the ureter during the procedure. The nature of my involvement with the procedure was discussed with the patient extensively. Possible risks and complications of bleeding, infection, anesthesia, damage to the urethra, bladder, ureter, and need for further surgery, etc discussed. No guarantees were given or implied. FINDINGS: The patient had some mild radiation changes of his prostate and bladder. Bilateral open-ended stents were placed. PROCEDURE IN DETAIL: Informed consent was obtained from the patient. The patient was brought to the operative room and then placed in the supine position. After successful general anesthesia was induced, the patient was placed in a modified dorsal lithotomy position and genitalia was then prepped and draped in the usual fashion. Preoperative IV antibiotics were administered. Time-out was performed. The patient had some meatal stenosis, which was gently dilated. Cystoscopy was then performed. The urethra was slightly stenotic, but I was able to get through that without difficulty. Prostate was moderately obstructive. Fossa was about 3 centimeters. It was slightly friable consistent with previous radiation. I was able to gain access to the bladder. The bladder was slightly trabeculated. Some mild mucosal erythema again consistent with previous radiation changes. He did have some distortion of its anatomy in the trigone. His orifices were slightly stenotic. At this point, the left ureteral orifice was cannulated with open-ended catheter. This was 6-Martiniquais catheter. Angled wire was then passed up and I was able to easily advance open-ended catheter up into the kidney over the wire. This was left indwelling and this was repeated also on the right side. Once both open-ended catheters were in place, a small amount of contrast was injected on the fluoroscopy. It appeared that both were in good position with the tips in the proximal renal collecting system. At this point, an 18-Martiniquais Acosta catheter was then placed and irrigated out. Some contrast was injected into the cystogram. Catheter was in good position. The ureteral stents were then tied to the Acosta and the plan is for them to be removed at the end of the case by the primary surgeon. Blood loss is minimal. No complication. Graeme Chaparro M.D. DR: Manisha JOB#: [id number] CC: Gamaliel Branch M.D.; Fax#: [phone] MICHELL TUCKER M.D. ; FAX#: [phone]
[2018-08-06 16:00] VITALS: BP 138/62
--- NOTE | 2018-08-06 16:30 | Operative Note - Dictated ---
DATE OF OPERATION: 08/05/2018 SURGEON: Gamaliel Branch M.D. PREOPERATIVE DIAGNOSES: 1. Status post prior L4-L5 fusion. 2. Status post L5-S1 anterior fusion. 3. Radiculopathy, right lower extremity with stenosis at L4-L5 and L5-S1. OPERATION PERFORMED: 1. Posterior spinal fusion with interspinous fixation and instrumentation, L5-S1. 2. L5-S1 right-sided laminectomy and foraminotomy with neurolysis and decompression of L5 nerve root. 3. Redo laminectomy and complete facetectomy, L4-L5 right side. 4. Removal of hardware, L4-L5. 5. Use of local autograft as well as Signafuse for fusion purposes. 6. Use of fluoroscopy. 7. Neurodiagnostic monitoring. ESTIMATED BLOOD LOSS: 100 mL. COMPLICATIONS: None. DRAINS: Hemovac placed. INDICATIONS: The patient is a very pleasant gentleman who previously underwent a L4-L5 anterior-posterior fusion. He had advanced collapse develop at the L5-S1 level with stenosis at L4-L5 and L5-S1 resulting in radiculopathic pain of right lower extremity. Extension of the fusion was required. Earlier in the day, he had undergone an anterior fusion at L5-S1 and required a posterior stabilization and decompression. The patient elected to proceed. RISK NOTE: The patient was explained in detail risks and benefits of surgery to include but not be limited to those of bleeding, infection, damage to nerves/vessels/tendons, anesthetic risk, allergic reaction, aspiration, possibly , possible need for additional surgery and hardware removal was discussed. The patient elected to proceed. OPERATIVE PROCEDURE IN DETAIL: Under benefits of general anesthesia, the patient was turned prone onto a radiolucent Adam frame. The back was prepped and draped in usual sterile fashion. The skin was infiltrated with lidocaine and Marcaine with epinephrine. A midline incision was carried out through the prior incision L4-L5 and extended down to the S1 level. Subperiosteal dissection was carried out. Extensive scarring was encountered at the L4-L5 level due to the prior surgery. The interspinous ligament was identified at L5-S1 and this was used as a landmark to dissect the interspinous fixation device that was previously placed at L4-L5. Using Bovie, this was denuded of soft tissue. The locking screw was removed and the interspinous device was disengaged using a Hernandez elevator. At this point, once the interspinous device was removed at L4-L5, dissection was carried out bilaterally at L5-S1 to incorporate the facet joints. The facet at the left side was decorticated. This area was packed off. Attention was then turned to the right side. Operating microscope was brought into place and using a high-speed drill, hemilaminectomy was performed at L5 as well as superior portion of S1. Medial facetectomy was achieved using a high-speed drill as well as curved curettes and Kerrison punches. The L5 nerve root was dissected free all the way past the neural foramen and noted to be free of any further pressure by performing the laminectomy. The nerve root was clearly very indurated and a mobilization was required. This area was then packed off in an identical fashion. The leading edge of the lamina of L4 was identified. Extensive scarring from the prior surgery was noted. High-speed drill was used and a complete facetectomy was performed using high-speed drill as well as curved curettes and Kerrison punches. The L4 nerve root was clearly also severely compressed with extensive induration. Once complete mobilization of these two nerve roots was performed, copious irrigation was performed. FloSeal was applied. The decortication of the lamina of L5-S1 was achieved and interspinous fixation device was measured at 10 mm and a dual-lamina interspinous device was inserted at L5-S1 and crimped to the appropriate torque at the L5-S1 level and it was secured in place with a ratcheted locking screw. Once this was achieved, the insertion device was removed, inspected, and noted to have excellent fixation. AP and lateral fluoroscopic images demonstrated hardware in excellent position. At this point, the bone graft which was harvested from the laminectomies at L4-L5 and L5-S1 was placed into the lateral recess on the left side and into the interfacet region. At this point, it was decided to place a medium-sized Hemovac drain deep to the fascia. One gram of vancomycin was split, two-thirds subfascial and one-third suprafascial. The fascia was repaired using #1 Vicryl and subcutaneous closure using 2-0 Vicryl. Dermabond and a sterile dressing was applied. The patient was then turned onto his back and awakened. Prior to being awakened, the ureteral stents which were placed in anticipation of the anterior exposure were removed, however, the Acosta catheter was left intact per the recommendations of the Urology service for an anticipated 2 days. The patient was subsequently awakened, extubated, and transferred to recovery room in stable condition. Sponge and needle counts were correct. Gamaliel Kerri Branch DR: Alex JOB#: [id number] CC:
[2018-08-06] MEDS ORDERED: Tubing IV Secondary IV ONE (16:55)
--- NOTE | 2018-08-06 19:00 | Operative Note - Dictated ---
DATE OF OPERATION: 08/05/2018 VASCULAR SURGEON: Dheeraj Schmid M.D. SPINE SURGEON: Gamaliel Branch M.D. PREOPERATIVE DIAGNOSIS: Lumbar pain. POSTOPERATIVE DIAGNOSIS: Lumbar pain. PROCEDURE: Anterior retroperitoneal exposure L5-S1 vertebral interspace. INDICATIONS: The patient is a very pleasant gentleman who was seen in my office prior to surgery. He has been scheduled for a lumbar fusion at L5-S1. He does have a history of prior lateral fusion at L4-L5 as well the history of radiation for prostate carcinoma. Because of these prior surgeries and radiation, it was felt that preoperative urologic consultation and placement of ureteral stents would be helpful to decrease the risk of ureteral injury. I did discuss with him the increased risk of vascular and ureteral injuries related to pelvic radiation, he understands these increased risks and wished to proceed. DESCRIPTION OF FINDINGS: Ureteral stents were placed in bilateral ureters by Dr. hCaparro as dictated separately prior to the case. The patient's abdomen was prepped and draped. A vertical midline incision was used. A left retroperitoneal approach was used. There was no peritoneal or ureteral violation. The ureteral stent was easily palpated. There was no evidence of significant scarring around the ureter; however, there was significant scarring of the left iliac vein to the inferior border of L5. There was a large osteophyte on L5 that made mobilization superiorly and laterally on the left iliac vein difficult; however, we were able to gain 90% exposure of L5-S1. On flouroscopy, the interbody cage was placed somewhat to the right however it was well within the vertebral body on completion. There was no vascular injury. Blood loss was minimal. Complications none. The patient was hemodynamically stable throughout the anterior part of the case. Blood loss approximately 50 to 100 mL. DESCRIPTION OF PROCEDURE: The patient was taken to operative room. General anesthesia was used. Antibiotics were given. The patient's abdomen was prepped and draped. Appropriate time-out procedure was taken. A low vertical midline incision made infraumbilically. The anterior fascia was incised longitudinally in the midline. A plane was identified posterior to the left rectus abdominis developed posterolaterally towards the patient's left. The retroperitoneal space entered below the arcuate line. The peritoneum and ureter mobilized towards the patient's right exposing the left common iliac artery and vein. Dissection was carried on undersurface of left common vein and the middle sacral vessels ligated with vascular clips. The left iliac vein was adherent to the anterior surface of the L5 and S1. Blunt dissection was used as well as electrocautery to carefully mobilize the left iliac vein superiorly to gain adequate exposure of L5-S1. The Omni retractor was able to be set in place. Fluoroscopy was then able to be confirmed at the appropriate level. Then instrumentation was performed at L5-S1 and will dictated separately. On completion, retractor gently removed. The peritoneum and ureter were intact. The iliac vessels were intact. There was no evidence of any retroperitoneal bleeding. Anterior fascia was then closed using #1 PDS in running fashion. The skin and subcutaneous tissue were closed with 3-0 Vicryl and 4-0 Monocryl in running subcuticular closure technique. Estimated blood loss was less than 100 mL. Complications are none. Dheeraj Schmid M.D. DR: Forrest JOB#: [id number] CC: SANGEETA
--- NOTE | 2018-08-06 19:24 | Cardiology Progress Note ---
Assessment/Plan Assessment/Plan fever possible atelectatic bllod cx sent is dvt ppx ivf accucheck iss ruthie follow woudn lookd clear u/a [id number] Objective Last 24 Hour Vital Signs Date Time Temp Pulse Resp B/P (MAP) Pulse Ox O2 Delivery O2 Flow Rate FiO2 08/06/18 17:15 90 138/62 08/06/18 17:14 99.9 08/06/18 16:00 102.1 90 20 138/62 (87) 100 08/06/18 16:00 20 08/06/18 12:30 101.1 75 18 152/59 (90) 100 08/06/18 12:00 18 08/06/18 10:09 99.1 08/06/18 09:00 101.6 84 19 131/62 (85) 100 08/06/18 08:16 Nasal Cannula 3.0 08/06/18 08:00 18 08/06/18 04:48 98.5 81 19 139/65 (89) 100 08/06/18 04:00 15 08/06/18 00:00 15 08/05/18 21:21 99.2 82 18 144/68 (93) 98 08/05/18 21:00 Nasal Cannula 3.0 08/05/18 20:00 98.4 83 19 138/73 (94) 97 08/05/18 20:00 15 Intake and Output 08/05/18 08/06/18 18:59 06:59 Intake Total 2300 ml 1100 ml Output Total 720 ml 1320 ml Balance 1580 ml -220 ml IV Total 2050 ml 1100 ml Other 250 ml Output Urine Total 300 ml 1200 ml Drainage Total 140 ml 120 ml Estimated Blood Loss 200 ml Other 80 ml Laboratory Tests Test 08/06/18 05:20 08/06/18 09:45 White Blood Count 7.1 K/UL (4.8-10.8) Red Blood Count 3.79 M/UL (4.70-6.10) L Hemoglobin 11.8 G/DL (14.2-18.0) L Hematocrit 34.7 % (42.0-52.0) L Mean Corpuscular Volume 92 FL (80-99) Mean Corpuscular Hemoglobin 31.1 PG (27.0-31.0) H Mean Corpuscular Hemoglobin Concent 34.0 G/DL (32.0-36.0) Red Cell Distribution Width 10.7 % (11.6-14.8) L Platelet Count 151 K/UL (150-450) Mean Platelet Volume 6.3 FL (6.5-10.1) L Neutrophils (%) (Auto) 70.5 % (45.0-75.0) Lymphocytes (%) (Auto) 19.2 % (20.0-45.0) L Monocytes (%) (Auto) 9.7 % (1.0-10.0) Eosinophils (%) (Auto) 0.1 % (0.0-3.0) Basophils (%) (Auto) 0.6 % (0.0-2.0) Sodium Level 144 MMOL/L (136-145) Potassium Level 3.2 MMOL/L (3.5-5.1) L Chloride Level 109 MMOL/L (98-107) H Carbon Dioxide Level 29 MMOL/L (21-32) Anion Gap 7 mmol/L (5-15) Blood Urea Nitrogen 9 mg/dL (7-18) Creatinine 1.1 MG/DL (0.55-1.30) Estimat Glomerular Filtration Rate > 60 mL/min (>60) Glucose Level 136 MG/DL (74-106) H Calcium Level 8.0 MG/DL (8.5-10.1) L Urine Color Pale yellow Urine Appearance Slightly cloudy Urine pH 6 (4.5-8.0) Urine Specific [place] 1.010 (1.005-1.035) Urine Protein 3+ (NEGATIVE) H Urine Glucose (UA) Negative (NEGATIVE) Urine Ketones Negative (NEGATIVE) Urine Blood 5+ (NEGATIVE) H Urine Nitrite Negative (NEGATIVE) Urine Bilirubin Negative (NEGATIVE) Urine Urobilinogen Normal MG/DL (0.0-1.0) Urine Leukocyte Esterase 2+ (NEGATIVE) H Urine RBC 40-60 /HPF (0 - 0) H Urine WBC 5-10 /HPF (0 - 0) H Urine Squamous Epithelial Cells Occasional /LPF Urine Bacteria Occasional /HPF (NONE) Ciro Lucia MD Aug 06, 2018 19:24
[2018-08-06 19:45] VITALS: BP 120/70
[2018-08-06] MEDS: Tamsulosin 0.4mg cap ORAL SCH (21:07)
--- NOTE | 2018-08-06 21:15 | Progress Note ---
DATE: 08/06/2018 ACUTE PAIN MANAGEMENT PHYSICIAN PROGRESS NOTE VITAL SIGNS: Shows a fever of 101.1 which is the current temperature and T-max, pulse 75, respirations 18, blood pressure 152/59, oxygen saturation 100%. LABORATORY STUDIES: Shows sodium 144, potassium 3.2, chloride 109, bicarb 29, BUN 9, creatinine 1.1, glucose 136. Calcium 8.0. MEDICATIONS: Medication administration record reviewed. Medications include IV fluids, Colace, Flomax, Protonix, Hytrin, gabapentin, Dilaudid PURE PAK MACHINE OPERATOR, replacement potassium. As needed medications include Ancef, Tylenol, milk of magnesia, Narcan, Benadryl, Catapres, Mylanta, Phenergan, Dilaudid, [place], Chloraseptic spray. I saw the patient at bedside with the nurse RNAlilson and the patient's brother. Dr. Branch evaluated the patient earlier this morning and was pleased with the patient's improving condition. The patient does have a fever this morning which is likely due to postoperative atelectasis. Although the patient has been using the incentive spirometer, I had the patient demonstrated his technique to me and it showed that he was taking very shallow breaths. I encouraged more aggressive deep breathing with coughing. The patient did start passing positive flatus so we will trial him on clear liquid for dinner. He did have an episode of nausea earlier that with standing and is likely due to relative hypotension. The patient's blood pressure otherwise has been on the high side and I will restart his Norvasc at a decreased dose of 2.[address] Lucia, Internal Medicine will be following the patient as well and also supplementing the patient's potassium. The patient will continue with his Dilaudid PURE PAK MACHINE OPERATOR. As the patient demonstrates significant pain with coughing using incentive spirometer, I did encourage him to use the PURE PAK MACHINE OPERATOR more aggressively and also recommended that he trial the oral hydrocodone along with continued doses of subcutaneous Dilaudid to improve his analgesia and allow deeper breathing to hopefully resolve the fevers. We will continue to monitor the Hemovac drain output which was 60 mL overnight. The patient will continue with sequential compression pneumatic devices in place for DVT prophylaxis. Dante Patterson M.D. DR: Rodney JOB#: [id number] CC:
[2018-08-06] MEDS: NovoLOG Insulin Flexpen SUBQ SCH (21:47)
[2018-08-07] VITALS: BP 154/75
--- NOTE | 2018-08-07 01:00 | Consultation ---
DATE OF CONSULTATION: 08/06/2018 CARDIOLOGY CONSULTATION CONSULTING PHYSICIAN: Ciro Lucia M.D. REFERRING PHYSICIAN: Graeme Chaparro M.D. REASON FOR REFERRAL: Postoperative medical care. HISTORY OF PRESENT ILLNESS: This is a 63-year-old gentleman with history of work related injury, who underwent spine surgery yesterday. I was asked today to see the patient in consultation for postoperative medical care. The patient had some fevers earlier today. The nursing staff called me and orders were given and carried out. The patient does not have any chest pain. He is feeling better. He has already walked. After discussion with the nursing staff, he has been provided with incentive spirometer, which he has been using. His walking has not been associated with chest pain or shortness of breath. There is no PND or orthopnea. No palpitation. No dizziness, but he was dizzy when he first stood up to walk earlier today. PAST MEDICAL HISTORY: Positive for history of hypertension. He has borderline diabetes, borderline hyperlipidemia. No history of heart attack. He does have a history of prostate cancer that was treated in 2002 with radiation. No stroke. No hepatitis or tuberculosis. No asthma or emphysema. No ulcers. No kidney problems, liver problems, thyroid problems, anemia, arthritis, HIV or AIDS, or blood clots anywhere. ALLERGIES: He is not allergic to any medications. SOCIAL HISTORY: He does not smoke at this time, although he used to do remotely. No alcohol. No drugs. MEDICATIONS: His medications at home include terazosin 10 mg one tablet once a day, [place], amlodipine 5 mg daily, black currant seed oil, nabumetone twice daily, Naprosyn, gabapentin, and aspirin. REVIEW OF SYSTEMS: GASTROINTESTINAL: Denies any nausea or vomiting, has not had any bowel movements. He has had . PULMONARY: Denies any coughing or wheezing. CARDIAC: No chest pain, pressure, tightness, or heaviness in the chest. No palpitation. He did have some dizziness on standing. CONSTITUTIONAL: He does have some fevers today. NEUROLOGICAL: Negative. He feels better in terms of his leg pain. PHYSICAL EXAMINATION: GENERAL: Shows to be an elderly middle-aged gentleman, in no respiratory distress. VITAL SIGNS: His vital signs as mentioned, he has a temperature of 102.1 earlier today at 1600 hours and low-grade 99.9 at 5:15 p.m. NECK: Supple. No jugular venous distention. LUNGS: Clear to auscultation and percussion. CARDIAC: Showed regular rate and rhythm. No heaves, thrills, or gallops noted. ABDOMEN: Soft. Does not appear to have any tenderness. He has surgical scar in the lower abdomen. Dressing is dry and clean. No redness around the dressing. No rebound tenderness. No guarding. BACK: There is no spinal tenderness. He has a surgical scar in the posterior lumbar area that appears to be dry and clean. EXTREMITIES: There is no edema. He has pneumatic compression stockings in place. NEUROLOGICAL: He is awake, alert, and responsive, in no respiratory distress. LABORATORY VALUES: Today white count 7.1, hemoglobin 11.8, and platelet count 151,000. His sodium was 144, potassium 3.2, chloride 109, bicarb 29, BUN 9, and creatinine 1.1. Glucose 136. Calcium is 8.0. ASSESSMENT: 1. History of L5-S1 anterior fusion and L4-L5 fusion, radiculopathy. 2. Postoperative fever. 3. History of prostate cancer treated with radiation. 4. History of hypertension. 5. History of borderline diabetes. PLAN: This patient was admitted to the hospital. He has been seen in internal medicine cardiology consultation. Cardiovascularly, he is stable. He does have some low-grade fevers and this really postoperatively likely related to atelectasis. Incentive spirometer has been provided. The patient did have some blood culture sent earlier today. Await resolution of the fevers. His wounds appear to be clear. His IV site appears to be clear at this time. He has pneumatic compression stockings for DVT prophylaxis. He remains NPO except medications. He is on IV fluids. Once he has bowel movements, he will be started back on his diet. He should be on a sliding scale of insulin coverage with Accu-Cheks in the meantime for his borderline diabetes, which I suspect may become worse with the stress of surgery. Urinalysis will be ordered as well. Further recommendations upon the findings of the test. Hemodynamically he appears to be stable. Pain management has been provided by Dr. Patterson. The patient does have ureteral stents that were placed by Dr. Chaparro preoperatively for intraoperatively and those may need to be taken out eventually at the discretion of Spine Surgery and Urology. The patient will be followed. Ciro Lucia M.D. DR: HECTOR JOB#: [id number] CC:
[2018-08-07 04:00] VITALS: BP 143/73
[2018-08-07] MEDS: HYDROmorphone 1mg/ml Carpuject SUBQ PRN ×2 (05:49→21:09)
[2018-08-07] MEDS: ceFAZolin sod 1 GM in D5W 55 ML IVPB SCH (05:49)
[2018-08-07] MEDS: NovoLOG Insulin Flexpen SUBQ SCH ×4 (06:04→21:13)
[2018-08-07] MEDS ORDERED: PCA HYDROmorphone 1mg/ml 30 ML IV PRN ×2 (06:30→08:30)
[2018-08-07] MEDS ORDERED: D5 1/2NS 1,000 ML IV SCH (06:30)
[2018-08-07] MEDS ORDERED: Rate Change PCA 1 Each MISC PRN (06:30)
[2018-08-07] MEDS ORDERED: PCA shift volume MISC SCH (07:00)
--- NOTE | 2018-08-07 07:31 | Urology Progress Note ---
Assessment/Plan Assessment/Plan POD # 2, bilateral ureteral stents urinary retention prostate ca hx/XRT cont flomax voiding trial today reinsert xavier PRN Subjective Allergies: Coded Allergies: No Known Allergies (Unverified , 08/04/18) Subjective feels fair Objective Last 24 Hour Vital Signs Date Time Temp Pulse Resp B/P (MAP) Pulse Ox O2 Delivery O2 Flow Rate FiO2 08/07/18 04:49 100.4 08/07/18 04:00 15 08/07/18 04:00 102.2 90 18 143/73 (96) 98 08/07/18 00:00 99.9 95 18 154/75 (101) 96 08/07/18 00:00 16 08/06/18 21:45 100.4 08/06/18 21:00 Room Air 08/06/18 20:30 100.9 08/06/18 20:00 14 08/06/18 19:45 101.7 81 19 120/70 (87) 97 08/06/18 17:30 99.9 08/06/18 17:15 90 138/62 08/06/18 16:00 102.1 90 20 138/62 (87) 100 08/06/18 16:00 20 08/06/18 13:59 100.8 08/06/18 12:30 101.1 75 18 152/59 (90) 100 08/06/18 12:00 18 08/06/18 10:09 99.1 08/06/18 09:00 101.6 84 19 131/62 (85) 100 08/06/18 08:16 Nasal Cannula 3.0 08/06/18 08:00 18 Intake and Output 08/06/18 08/07/18 19:00 07:00 Intake Total 955 ml 1090 ml Output Total 1885 ml 700 ml Balance -930 ml 390 ml Intake Oral 300 ml 120 ml IV Total 655 ml 970 ml Output Urine Total 1800 ml 700 ml Drainage Total 85 ml Current Medications Medications (Trade) Dose Ordered Sig/Fanta Route PRN Reason Start Time Stop Time Status Last Admin Dose Admin Acetaminophen (Tylenol) 650 mg Q4H PRN ORAL headache or temp>101 08/05/18 18:00 09/04/18 17:59 08/07/18 03:57 Acetaminophen/ Hydrocodone Bitart ([place] 10/325) 1 tab Q3H PRN ORAL Moderate breakthrough pain 08/05/18 18:00 08/12/18 17:59 Al Hydroxide/Mg Hydroxide (Mylanta) 30 ml Q6H PRN ORAL gerd/dyspepsia 08/05/18 18:00 09/04/18 17:59 Amlodipine Besylate (Norvasc) 2.5 mg BID ORAL 08/06/18 18:00 09/05/18 17:59 08/06/18 17:15 Cefazolin Sodium 1 gm/Dextrose 55 ml @ 110 mls/hr Q8HR IVPB 08/06/18 14:00 08/13/18 13:59 08/07/18 05:49 Clonidine HCl (Catapres Tab) 0.1 mg Q8H PRN ORAL SBP>160mmHg 08/05/18 18:00 09/04/18 17:59 Dextrose (Dextrose 50%) 25 ml Q30M PRN IV Hypoglycemia 08/06/18 19:30 09/05/18 19:29 Dextrose (Dextrose 50%) 50 ml Q30M PRN IV Hypoglycemia 08/06/18 19:30 09/05/18 19:29 Diphenhydramine HCl (Benadryl) 25 mg Q6H PRN ORAL Itching 08/05/18 18:00 09/04/18 17:59 Docusate Sodium (Colace) 100 mg TWICE A DAY ORAL 08/05/18 18:00 09/04/18 17:59 08/06/18 17:16 Gabapentin (Neurontin) 300 mg Q12HR ORAL 08/05/18 18:00 09/04/18 17:59 08/06/18 21:07 Hydromorphone HCl (Dilaudid) 1 mg Q3H PRN SUBQ Severe Breakthru Pain (>7) 08/05/18 18:00 08/12/18 17:59 08/07/18 05:49 Insulin Aspart (NovoLOG) BEFORE MEALS AND HS SUBQ 08/06/18 21:00 09/05/18 20:59 08/07/18 06:04 Magnesium Hydroxide (Mom) 30 ml QIDPRN PRN ORAL Constipation 08/05/18 18:00 09/04/18 17:59 Miscellaneous Medication (GUIDE TRAVEL Rate Change) 1 ea DAILY PRN MISC GUIDE TRAVEL RATE CHANGE 08/07/18 06:30 08/07/18 12:00 Miscellaneous Medication (GUIDE TRAVEL shift volume) 1 ea Q12HR@0700,1900 MISC 08/07/18 07:00 08/07/18 12:00 08/07/18 07:07 Naloxone HCl (Narcan) 0.1 mg PRN IV . 08/05/18 16:30 09/04/18 16:29 Ondansetron HCl (Zofran) 4 mg Q4H PRN IVP Nausea & Vomiting 08/05/18 18:00 09/04/18 17:59 08/06/18 08:45 Pantoprazole (Protonix) 40 mg BEDTIME ORAL 08/05/18 21:00 09/04/18 20:59 08/06/18 21:07 Phenol/Menthol (Chloraseptic) 1 spray Q3H PRN ORAL sore throat 08/05/18 18:30 09/04/18 18:29 08/05/18 18:59 Promethazine HCl (Phenergan) 12.5 mg Q8HR PRN IM Nausea & Vomiting 08/05/18 18:00 09/04/18 17:59 Tamsulosin HCl (Flomax) 0.4 mg BEDTIME ORAL 08/05/18 21:00 09/04/18 20:59 08/06/18 21:07 Terazosin HCl (Hytrin) 10 mg BEDTIME ORAL 08/06/18 21:00 09/05/18 20:59 08/06/18 21:07 Laboratory Tests 08/06/18 09:45: Urine Color Pale yellow, Urine Appearance Slightly cloudy, Urine pH 6, Urine Specific [place] 1.010, Urine Protein 3+H, Urine Glucose (UA) Negative, Urine Ketones Negative, Urine Blood 5+H, Urine Nitrite Negative, Urine Bilirubin Negative, Urine Urobilinogen Normal, Urine Leukocyte Esterase 2+H, Urine RBC 40- 60H, Urine WBC 5-10H, Urine Squamous Epithelial Cells Occasional, Urine Bacteria Occasional Height (Feet): 5 Height (Inches): 9.00 Weight (Pounds): 200 Objective abdomen soft Bamshad,Graeme Flaherty MD Aug 07, 2018 07:31
[2018-08-07 07:36] LABS: BASOPHILS % (AUTO) 0.3 % (0.0-2.0); HEMATOCRIT 30.8 % (42.0-52.0); HEMOGLOBIN 10.7 G/DL (14.2-18.0); LYMPHOCYTES % (AUTO) 11.2 % (20.0-45.0); MEAN CORPUSCULAR VOLUME 91 FL (80-99); MONOCYTES % (AUTO) 7.9 % (1.0-10.0); NEUTROPHILS % (AUTO) 80.6 % (45.0-75.0); PLATELET COUNT 130 K/UL (150-450); RED BLOOD COUNT 3.37 M/UL (4.70-6.10); RED CELL DISTRIBUTION WIDTH 10.3 % (11.6-14.8); WHITE BLOOD COUNT 9.1 K/UL (4.8-10.8)
[2018-08-07 07:56] LABS: ALANINE AMINOTRANSFERASE 14 U/L (12-78); ALBUMIN 2.6 G/DL (3.4-5.0); ALBUMIN/GLOBULIN RATIO 0.7 (1.0-2.7); ALKALINE PHOSPHATASE 43 U/L (46-116); ANION GAP 7 mmol/L (5-15); ASPARTATE AMINO TRANSFERASE 16 U/L (15-37); BILIRUBIN,TOTAL 0.6 MG/DL (0.2-1.0); BLOOD UREA NITROGEN 7 mg/dL (7-18); CALCIUM 8.2 MG/DL (8.5-10.1); CARBON DIOXIDE 27 MMOL/L (21-32); CHLORIDE 108 MMOL/L (98-107); CREATININE 1.1 MG/DL (0.55-1.30); POTASSIUM 3.2 MMOL/L (3.5-5.1); SODIUM 142 MMOL/L (136-145)
[2018-08-07] MEDS: HYDROcodone/Acetamin 10/325 tab ORAL PRN ×2 (07:59→13:38)
[2018-08-07 08:00] VITALS: BP 135/77
[2018-08-07] MEDS ORDERED: NORCO 10-325 T1 EACH ORAL ×2 (08:23)
--- NOTE | 2018-08-07 08:35 | Orthopedic Spine Progress Note ---
Ortho Spine - Progress Note Subjective Symptoms: c/o post-op back pain, improved - as compared to pre-op Objective Vital Signs: Last 24 Hour Vital Signs Date Time Temp Pulse Resp B/P (MAP) Pulse Ox O2 Delivery O2 Flow Rate FiO2 08/07/18 08:06 Room Air 08/07/18 08:00 18 08/07/18 04:49 100.4 08/07/18 04:00 15 08/07/18 04:00 102.2 90 18 143/73 (96) 98 08/07/18 00:00 99.9 95 18 154/75 (101) 96 08/07/18 00:00 16 08/06/18 21:45 100.4 08/06/18 21:00 Room Air 08/06/18 20:30 100.9 08/06/18 20:00 14 08/06/18 19:45 101.7 81 19 120/70 (87) 97 08/06/18 17:30 99.9 08/06/18 17:15 90 138/62 08/06/18 16:00 102.1 90 20 138/62 (87) 100 08/06/18 16:00 20 08/06/18 13:59 100.8 08/06/18 12:30 101.1 75 18 152/59 (90) 100 08/06/18 12:00 18 08/06/18 10:09 99.1 08/06/18 09:00 101.6 84 19 131/62 (85) 100 I&O: Intake and Output 08/06/18 08/07/18 19:00 07:00 Intake Total 955 ml 1090 ml Output Total 1885 ml 942 ml Balance -930 ml 148 ml Intake Oral 300 ml 120 ml IV Total 655 ml 970 ml Output Urine Total 1800 ml 890 ml Drainage Total 85 ml 52 ml Wound: clean, intact Drains: none Neuro Status: normal Assessment Procedure Performed: ant post fusion l5s1, decompression L45S1 R side, HWR L45 Plan Plan: PT, pain management, d/c antibiotics, d/c drain, discharge plan Additional Comments: IS for elevated temp-- monitor. afeb now Gamaliel Branch MD Aug 07, 2018 08:35
[2018-08-07] MEDS: Docusate 100mg cap ORAL SCH ×2 (08:39→17:49)
--- NOTE | 2018-08-07 10:30 | Progress Note ---
DATE: 08/07/2018 ACUTE PAIN MANAGEMENT PHYSICIAN PROGRESS NOTE OBJECTIVE: VITAL SIGNS: Current temperature 100.4, T-max overnight was 102.2, blood pressure 143/73, pulse 90, respirations 15, and oxygen saturation 98% on room air. LABORATORY AND DIAGNOSTIC DATA: Laboratory studies from this morning are pending. Yesterday's white count August 06, 2018, was normal at 7, hematocrit 35, platelets 151. Chemistry 144, potassium 3.2, chloride 109, bicarb 29, BUN 9, creatinine 1.1, glucose 136, calcium 8.0. Urinalysis from yesterday morning shows protein 3+, occasional bacteria, leukocyte esterase 2+. Chest x-ray from yesterday shows no acute cardiopulmonary disease. MEDICATIONS: Medication administration record reviewed. Medications include IV fluids, Colace, Flomax, Protonix, Hytrin, Norvasc, diabetic protocol, Neurontin, Ancef, Tylenol, milk of magnesia, Narcan, Dilaudid [employer] PLANT OPERATOR, Benadryl, Catapres, Mylanta, Zofran, Phenergan, Dilaudid, [place], and Chloraseptic spray. I saw the patient at the bedside with the nurse, ELE Kowalski. I discussed the case with the surgeon, Dr. Branch. Per the instructions from the urologist, the nurse removed the [place] catheter this morning. We will see how the patient void urine. The patient slept most of the night. Although this is terrific for pain control, the patient has not been using his incentive spirometer for nearly 10 hours and also has not been out of bed ambulating. This has resulted in increased fevers certainly contributed by postoperative atelectasis. His yesterday's chest x-ray and normal white blood cell count suggest that his postoperative fevers are significantly contributed by atelectasis. I encouraged the patient to be much more aggressive using his incentive spirometer with deep coughing to clear any phlegm. Additionally, the patient needs to be much more aggressive ambulating with physical therapy, physical therapy training will continue this morning. Dr. Lucia has started extensive workup for these postoperative fevers as well. After the patient's anterior lumbar fusion surgery procedure, he did start passing positive flatus. Yesterday, he was started on a clear liquid diet, which was well tolerated. He has been passing much more flatus overnight. I advance the diet to full liquids this morning with advance as tolerated to-follow. The patient continues to use his PHARMACE[employer]ICAL PLANT OPERATOR Dilaudid unit. He also has been receiving subcutaneous Dilaudid and uses [place] oral tablets at home frequently. Therefore, I will discontinue the PH[employer]ANT OPERATOR and Hep-Lock his IV at noon time later today to encourage movement in and out of bed. He will continue with the breakthrough doses of Dilaudid and [place] as ordered. The patient remains on b.i.d. Colace to help with his bowel function and multiple p.r.n. laxatives have been ordered by Dr. Branch already. The patient denies any nausea symptoms. He has sequential compression pneumatic devices in place for DVT prophylaxis. I did leave a prescription for 60 tablets of [place] 10/325 for outpatient usage. Output from the Hemovac drain overnight had decreased to 50 mL. The patient was turned to his left lateral decubitus position to examined the lumbar spine dressing and wound. The dressing was removed showing the incision line clean and dry with Durabond Sealant intact. The drain hole site appeared clean and dry as well. With the Hemovac drain taken off of suction and end-expiration, I personally removed the indwelling lumbar spine drain catheter. The tip was intact. I generously applied alcohol swabbing to the drain hole site and to the incision line. Sterile island border gauze dressings were applied over the drain hole site and the entire incision area without any complications. Dante Patterson M.D. DR: LAURA JOB#: [id number] CC:
[2018-08-07 12:00] VITALS: BP 143/78
[2018-08-07 16:00] VITALS: BP 156/62
--- NOTE | 2018-08-07 18:47 | Cardiology Progress Note ---
Assessment/Plan Assessment/Plan 1. History of L5-S1 anterior fusion and L4-L5 fusion, radiculopathy. 2. Postoperative fever. 3. History of prostate cancer treated with radiation. 4. History of hypertension. 5. History of borderline diabetes. asked id for recurrent fever wbc is fien his wound looks fine bp is ok will repeat labs in am is on clear now urology following stent removed d/w rn Subjective Cardiovascular: Reports: lightheadedness - some ; Denies: chest pain Respiratory: Reports: cough - min ; Denies: shortness of breath Gastrointestinal/Abdominal: Reports: other - had faltus no bm ; Denies: abdominal pain Genitourinary: Denies: burning Objective Last 24 Hour Vital Signs Date Time Temp Pulse Resp B/P (MAP) Pulse Ox O2 Delivery O2 Flow Rate FiO2 08/07/18 17:49 93 156/62 08/07/18 16:51 102.4 08/07/18 16:00 100.6 93 21 156/62 (93) 08/07/18 14:08 100.4 08/07/18 12:53 100.4 08/07/18 12:00 08/07/18 12:00 100.8 103 21 143/78 (99) 99 08/07/18 08:38 97 135/77 08/07/18 08:30 18 08/07/18 08:06 Room Air 08/07/18 08:00 98.8 97 21 135/77 (96) 99 08/07/18 08:00 18 08/07/18 04:00 15 08/07/18 04:00 102.2 90 18 143/73 (96) 98 08/07/18 00:00 99.9 95 18 154/75 (101) 96 08/07/18 00:00 16 08/06/18 21:45 100.4 08/06/18 21:00 Room Air 08/06/18 20:30 100.9 08/06/18 20:00 14 08/06/18 19:45 101.7 81 19 120/70 (87) 97 General Appearance: no apparent distress, alert Neck: supple Cardiovascular: normal rate, regular rhythm Respiratory/Chest: lungs clear Abdomen: normal bowel sounds, non tender, soft, other - wound clear Extremities: no swelling Intake and Output 08/06/18 08/07/18 18:59 06:59 Intake Total 955 ml 1190 ml Output Total 1885 ml 942 ml Balance -930 ml 248 ml Intake Oral 300 ml 120 ml IV Total 655 ml 1070 ml Output Urine Total 1800 ml 890 ml Drainage Total 85 ml 52 ml Laboratory Tests Test 08/07/18 07:15 White Blood Count 9.1 K/UL (4.8-10.8) Red Blood Count 3.37 M/UL (4.70-6.10) L Hemoglobin 10.7 G/DL (14.2-18.0) L Hematocrit 30.8 % (42.0-52.0) L Mean Corpuscular Volume 91 FL (80-99) Mean Corpuscular Hemoglobin 31.8 PG (27.0-31.0) H Mean Corpuscular Hemoglobin Concent 34.8 G/DL (32.0-36.0) Red Cell Distribution Width 10.3 % (11.6-14.8) L Platelet Count 130 K/UL (150-450) L Mean Platelet Volume 5.2 FL (6.5-10.1) L Neutrophils (%) (Auto) 80.6 % (45.0-75.0) H Lymphocytes (%) (Auto) 11.2 % (20.0-45.0) L Monocytes (%) (Auto) 7.9 % (1.0-10.0) Eosinophils (%) (Auto) 0.0 % (0.0-3.0) Basophils (%) (Auto) 0.3 % (0.0-2.0) Sodium Level 142 MMOL/L (136-145) Potassium Level 3.2 MMOL/L (3.5-5.1) L Chloride Level 108 MMOL/L (98-107) H Carbon Dioxide Level 27 MMOL/L (21-32) Anion Gap 7 mmol/L (5-15) Blood Urea Nitrogen 7 mg/dL (7-18) Creatinine 1.1 MG/DL (0.55-1.30) Estimat Glomerular Filtration Rate > 60 mL/min (>60) Glucose Level 146 MG/DL (74-106) H Calcium Level 8.2 MG/DL (8.5-10.1) L Total Bilirubin 0.6 MG/DL (0.2-1.0) Aspartate Amino Transf (AST/SGOT) 16 U/L (15-37) Alanine Aminotransferase (ALT/SGPT) 14 U/L (12-78) Alkaline Phosphatase 43 U/L (46-116) L Total Protein 6.5 G/DL (6.4-8.2) Albumin 2.6 G/DL (3.4-5.0) L Globulin 3.9 g/dL Albumin/Globulin Ratio 0.7 (1.0-2.7) L Microbiology Date/Time Source Procedure Growth Status 08/05/18 06:05 Nasal Nares MRSA Culture - Final NO METHICILLIN RESISTANT STAPH AUREUS... Complete 08/06/18 09:45 Indwelling Cath Urine Culture - Preliminary NO GROWTH Resulted Ciro Lucia MD Aug 07, 2018 18:47
[2018-08-07 20:00] VITALS: BP 131/83
[2018-08-07] MEDS: Tamsulosin 0.4mg cap ORAL SCH (21:03)
--- NOTE | 2018-08-07 21:15 | Consultation ---
DATE OF CONSULTATION: 08/07/2018 INFECTIOUS DISEASE CONSULTATION CONSULTING PHYSICIAN: Garcia Mason M.D. PRIMARY ATTENDING PHYSICIAN: Gamaliel Branch M.D. PRIMARY GAME SHOW HOST: Ciro Lucia M.D. REASON FOR CONSULT: Postoperative fever. HISTORY OF PRESENT ILLNESS: The patient is a 63-year-old male admitted on 08/05/2018 from home for elective surgery on the back. The patient had previous surgery in the back for work-related injury. Before the surgery, a ureteral stent was placed for ureteral recognition surgery. Ureteral stents were removed today. The surgery was done on 08/05/2018 with posterior and anterior fusion, discectomy of L5-S1, L4-L5 fusion. Today after surgery, the patient developed fever that is continuing. Today, had a T-max of 102.4. PAST MEDICAL HISTORY: Significant for hypertension, borderline diabetes mellitus, history of prostate cancer, status post radiation in 2016, and history of spinal surgery. ALLERGIES: No known drug allergy. MEDICATIONS: Terazosin, insulin, getting preoperative cefazolin, getting Flomax, Protonix, Tylenol, Colace, magnesium hydroxide, diphenhydramine, Mylanta, promethazine, hydromorphone, [place], gabapentin, and naloxone. SOCIAL HISTORY: . No history of alcohol, drug abuse, or smoking. REVIEW OF SYSTEMS: Fever, hypertension, occasional coughing. No nausea. No vomiting no diarrhea. The patient can walk today and can go to the bathroom. No dysuria. PHYSICAL EXAMINATION: VITAL SIGNS: Temperature 102.4, pulse 92, and blood pressure 156/62. GENERAL APPEARANCE: No acute distress. HEAD AND NECK: [place] conjunctiva. No oral lesion. HEART: S1, S2. Regular. LUNGS: Clear. ABDOMEN: Soft and nontender. There is dressing in the lower abdomen and lower back. EXTREMITIES: Has no edema. NEUROLOGIC: Currently awake, alert, and oriented x3. No focal signs. LABORATORY AND DIAGNOSTIC DATA: WBC 9.1, hemoglobin 10.7, hematocrit 30.8, and platelets are 130,000. Sodium 142, potassium 3.2, chloride 108, bicarbonate 27, BUN 7, and creatinine 1.1. Albumin is 2.6. Urine culture, no growth. MRSA screen, no growth. Chest x-ray done yesterday was negative. IMPRESSION: Postoperative fever. So far urine culture and chest x-ray negative. Blood culture is pending. The patient had anterior-posterior fusion, discectomy of L5-S1, and L4-L5 fusion, history of prostate cancer, has diabetes mellitus, and hypertension. RECOMMENDATION: We will observe off of antibiotics for now. We will follow up the cultures. At the end of my exam, I thank Dr. Branch and Dr. Lucia, for involving me in the care of this patient. Garcia Mason M.D. DR: ELLA JOB#: [id number] CC: SANGEETA
[2018-08-07] MEDS: cefTRIAXone 1 GM in D5W 55 ML IVPB SCH (22:08)
[2018-08-08] VITALS: BP 145/72
[2018-08-08 04:00] VITALS: BP 143/79
[2018-08-08] MEDS: NovoLOG Insulin Flexpen SUBQ SCH ×4 (06:27→21:00)
[2018-08-08 07:11] LABS: LYMPHOCYTES % (AUTO) 16.4 % (20.0-45.0); MEAN CORPUSCULAR VOLUME 92 FL (80-99); MONOCYTES % (AUTO) 7.7 % (1.0-10.0); NEUTROPHILS % (AUTO) 74.9 % (45.0-75.0); PLATELET COUNT 141 K/UL (150-450); RED CELL DISTRIBUTION WIDTH 10.2 % (11.6-14.8); WHITE BLOOD COUNT 8.8 K/UL (4.8-10.8)
[2018-08-08 07:19] LABS: ANION GAP 7 mmol/L (5-15); BLOOD UREA NITROGEN 7 mg/dL (7-18); CALCIUM 8.8 MG/DL (8.5-10.1); CARBON DIOXIDE 29 MMOL/L (21-32); CHLORIDE 106 MMOL/L (98-107); CREATININE 1.1 MG/DL (0.55-1.30); POTASSIUM 3.2 MMOL/L (3.5-5.1); SODIUM 142 MMOL/L (136-145)
--- NOTE | 2018-08-08 07:37 | 48 Hour Post Anesthesia Eval ---
Post Anesthesia Evaluation Procedure: Anterior L5-S1 discectomy fusion, posterior L5-S1 revision of hardwear with Date of Evaluation: Aug 06, 2018 Airway: patent Nausea: No Vomiting: No Pain Intensity: 2 Hydration Status: adequate Cardiopulmonary Status: at baseline Mental Status/LOC: patient returned to baseline Follow-up Care/Observations: PAtient is febrile, no signs of infection. ID following. Post-Anesthesia Complications: 0 Follow-up care needed: N/A - further care as per primary team Maryse Euceda MD Aug 08, 2018 07:37
[2018-08-08 08:00] VITALS: BP 151/79
--- NOTE | 2018-08-08 08:00 | Progress Note ---
DATE: 08/08/2018 ACUTE PAIN MANAGEMENT PHYSICIAN PROGRESS NOTE MEDICATIONS: Medication administration record reviewed. Medication include Hytrin, Flomax, Phenergan, Chloraseptic spray, Protonix, Zofran, Narcan, milk of magnesia, NovoLog, [place], Neurontin, Colace, Benadryl, Catapres, Norvasc, and Mylanta. LABORATORY STUDIES: From yesterday morning, August 07, 2018, shows white count 9, hematocrit 31, platelets 130. Sodium 142, potassium 3.2, chloride 108, bicarb 27, BUN 7, creatinine 1.1, glucose 146, calcium 8.2. Total bilirubin 0.6. AST 16, ALT 14, and alkaline phosphatase 43. Total protein 6.5. Albumin 2.6. OBJECTIVE: VITAL SIGNS: Continued fevers. Current temperature 101.0, T-max overnight 101.2, pulse 103, respirations 20, blood pressure , and oxygen saturation 96% on room air. Microbiology shows no growth to date. Blood cultures of August 06, 2018 preliminary. Urine culture, no growth to date, preliminary. MRSA screen culture negative. I saw the patient at the bedside with his brother and discussed the case with the overnight nurse RN, Maria Elena. Examination of lumbar dressing shows the bandage clean and dry. The patient is very mobile. I witnessed the patient in the standing position, putting on his pants. Although with slow movement, the patient was able to bend his knees and put on his pants from the standing position. The patient was in good spirits. I discussed with the patient that we will discontinue all parental opioid narcotics at this time and just use the oral [place] for both fever and analgesia. The patient agrees with the plan. I did leave a prescription for 60 tablets of [place] for outpatient usage. The patient denies any shortness of breath or chest pain. He does have persistent fevers and I will defer this persistent fevers to Dr. Branch and the other physicians caring for this patient. Laboratory studies from this morning up remained pending. I reviewed the patient's medication list. He is passing positive flatus, but has not yet had a bowel movement. I have asked the nursing team to provide prune juice to the bedside. The patient's incentive spirometer remains at the bedside and we continue to encourage aggressive usage. The patient has great social support at the bedside with his brother, I will defer discharge planning to Dr. Branch and Infectious Disease. Currently all culture studies have shown no growth to date. Dante Patterson M.D. DR: LAURA JOB#: [id number] CC:
[2018-08-08] MEDS: Docusate 100mg cap ORAL SCH ×2 (08:24→17:10)
[2018-08-08] MEDS ORDERED: cefTRIAXone 1 GM in D5W 55 ML IVPB SCH (09:00)
--- NOTE | 2018-08-08 10:25 | Urology Progress Note ---
Assessment/Plan Assessment/Plan POD # 3, bilateral ureteral stents urinary retention prostate ca hx/XRT flomax dc'd hytrin voiding reinsert xavier PRN abx added f/u on cx's d/w Dr.'s [place] Subjective Allergies: Coded Allergies: No Known Allergies (Unverified , 08/04/18) Subjective feels fair, xavier out, voiding, fevers Objective Last 24 Hour Vital Signs Date Time Temp Pulse Resp B/P (MAP) Pulse Ox O2 Delivery O2 Flow Rate FiO2 08/08/18 09:00 Room Air 08/08/18 08:24 99 151/79 08/08/18 08:00 98.9 89 16 151/79 (103) 99 08/08/18 05:00 101.0 08/08/18 04:00 100.8 103 20 143/79 (100) 96 08/08/18 00:00 101.2 91 20 145/72 (96) 96 08/07/18 21:00 Room Air 08/07/18 20:00 100.8 87 20 131/83 (99) 98 08/07/18 18:30 101.2 08/07/18 17:49 93 156/62 08/07/18 16:51 102.4 08/07/18 16:00 100.6 93 21 156/62 (93) 08/07/18 14:08 100.4 08/07/18 12:00 08/07/18 12:00 100.8 103 21 143/78 (99) 99 Intake and Output 08/07/18 08/08/18 19:00 07:00 Intake Total 720 ml 55 ml Output Total 550 ml Balance 170 ml 55 ml Intake Oral 720 ml IV Total 55 ml Output Urine Total 550 ml # Voids 2 Microbiology Date/Time Source Procedure Growth Status 08/06/18 10:00 Blood Blood Culture - Preliminary NO GROWTH AFTER 24 HOURS Resulted 08/05/18 06:05 Nasal Nares MRSA Culture - Final NO METHICILLIN RESISTANT STAPH AUREUS... Complete 08/06/18 09:45 Indwelling Cath Urine Culture - Preliminary NO GROWTH AFTER 24 HOURS Resulted Current Medications Medications (Trade) Dose Ordered Sig/Fanta Route PRN Reason Start Time Stop Time Status Last Admin Dose Admin Acetaminophen/ Hydrocodone Bitart ([place] 10/325) 1 tab Q3H PRN ORAL pain/fever 08/08/18 06:00 08/12/18 17:59 Al Hydroxide/Mg Hydroxide (Mylanta) 30 ml Q6H PRN ORAL gerd/dyspepsia 08/05/18 18:00 09/04/18 17:59 Amlodipine Besylate (Norvasc) 2.5 mg BID ORAL 08/06/18 18:00 09/05/18 17:59 08/08/18 08:24 Ceftriaxone Sodium 1 gm/ Dextrose 55 ml @ 110 mls/hr Q24H IVPB 08/07/18 22:00 08/14/18 21:59 08/07/18 22:08 Clonidine HCl (Catapres Tab) 0.1 mg Q8H PRN ORAL SBP>160mmHg 08/05/18 18:00 09/04/18 17:59 Dextrose (Dextrose 50%) 25 ml Q30M PRN IV Hypoglycemia 08/06/18 19:30 09/05/18 19:29 Dextrose (Dextrose 50%) 50 ml Q30M PRN IV Hypoglycemia 08/06/18 19:30 09/05/18 19:29 Diphenhydramine HCl (Benadryl) 25 mg Q6H PRN ORAL Itching 08/05/18 18:00 09/04/18 17:59 Docusate Sodium (Colace) 100 mg TWICE A DAY ORAL 08/05/18 18:00 09/04/18 17:59 08/08/18 08:24 Gabapentin (Neurontin) 300 mg Q12HR ORAL 08/05/18 18:00 09/04/18 17:59 08/08/18 08:24 Insulin Aspart (NovoLOG) BEFORE MEALS AND HS SUBQ 08/06/18 21:00 09/05/18 20:59 08/08/18 06:27 Magnesium Hydroxide (Mom) 30 ml QIDPRN PRN ORAL Constipation 08/05/18 18:00 09/04/18 17:59 08/08/18 08:23 Ondansetron HCl (Zofran) 4 mg Q4H PRN IVP Nausea & Vomiting 08/05/18 18:00 09/04/18 17:59 08/06/18 08:45 Pantoprazole (Protonix) 40 mg BEDTIME ORAL 08/05/18 21:00 09/04/18 20:59 08/07/18 21:03 Phenol/Menthol (Chloraseptic) 1 spray Q3H PRN ORAL sore throat 08/05/18 18:30 09/04/18 18:29 08/05/18 18:59 Potassium Chloride (K-Dur) 20 meq ONCE ORAL 08/08/18 10:30 08/08/18 12:00 Potassium Chloride (K-Dur) 40 meq ONCE ORAL 08/08/18 10:13 08/08/18 11:13 08/08/18 10:19 Terazosin HCl (Hytrin) 10 mg BEDTIME ORAL 08/06/18 21:00 09/05/18 20:59 08/07/18 21:03 Laboratory Tests 08/08/18 06:58: White Blood Count 8.8, Red Blood Count 3.70L, Hemoglobin 12.0L, Hematocrit 34.0L , Mean Corpuscular Volume 92, Mean Corpuscular Hemoglobin 32.5H, Mean Corpuscular Hemoglobin Concent 35.4, Red Cell Distribution Width 10.2L, Platelet Count 141L, Mean Platelet Volume 5.6L, Neutrophils (%) (Auto) 74.9, Lymphocytes (%) (Auto) 16.4L, Monocytes (%) (Auto) 7.7, Eosinophils (%) (Auto) 0.0, Basophils (%) (Auto) 1.0, Sodium Level 142, Potassium Level 3.2L, Chloride Level 106, Carbon Dioxide Level 29, Anion Gap 7, Blood Urea Nitrogen 7, Creatinine 1.1, Estimat Glomerular Filtration Rate > 60, Glucose Level 135H, Calcium Level 8.8 Height (Feet): 5 Height (Inches): 9.00 Weight (Pounds): 200 Objective abdomen soft Bamshad,Graeme Flaherty MD Aug 08, 2018 10:25
[2018-08-08 12:00] VITALS: BP 133/68
[2018-08-08] MEDS: HYDROcodone/Acetamin 10/325 tab ORAL PRN ×2 (12:22→17:14)
[2018-08-08 16:00] VITALS: BP 152/63
--- NOTE | 2018-08-08 16:00 | Orthopedic Spine Progress Note ---
Ortho Spine - Progress Note Subjective Symptoms: c/o post-op back pain, improved - as compared to pre-op Objective Vital Signs: Last 24 Hour Vital Signs Date Time Temp Pulse Resp B/P (MAP) Pulse Ox O2 Delivery O2 Flow Rate FiO2 08/08/18 12:52 100.0 08/08/18 12:00 100.8 84 18 133/68 (89) 98 08/08/18 09:00 Room Air 08/08/18 08:24 99 151/79 08/08/18 08:00 98.9 89 16 151/79 (103) 99 08/08/18 05:00 101.0 08/08/18 04:00 100.8 103 20 143/79 (100) 96 08/08/18 00:00 101.2 91 20 145/72 (96) 96 08/07/18 21:00 Room Air 08/07/18 20:00 100.8 87 20 131/83 (99) 98 08/07/18 18:30 101.2 08/07/18 17:49 93 156/62 08/07/18 16:51 102.4 08/07/18 16:00 100.6 93 21 156/62 (93) I&O: Intake and Output 08/07/18 08/08/18 19:00 07:00 Intake Total 720 ml 55 ml Output Total 550 ml Balance 170 ml 55 ml Intake Oral 720 ml IV Total 55 ml Output Urine Total 550 ml # Voids 2 Wound: clean, intact Drains: none Neuro Status: normal Additional Comments: calf soft Assessment Procedure Performed: ant post fusion l5s1, decompression L45S1 R side, HWR L45 Plan Plan: PT, pain management, continue antibiotics Additional Comments: fevers unknown origin, but ortiz thus far negative. from ortho view, ok for discharge with abx if ok with ID and IM. Gamaliel Branch MD Aug 08, 2018 16:00
--- NOTE | 2018-08-08 16:26 | Infectious Diseases Prog Note ---
Assessment/Plan Assessment/Plan A; Post operative fever Spinal fusion DM HPN P: Continue Rocephin Cultures are negative so far Subjective ROS Limited/Unobtainable: No Constitutional: Reports: fever Respiratory: Reports: productive cough Gastrointestinal/Abdominal: Reports: no symptoms Genitourinary: Reports: no symptoms Musculoskeletal: Reports: pain Allergies: Coded Allergies: No Known Allergies (Unverified , 08/04/18) Objective Vital Signs Last 24 Hour Vital Signs Date Time Temp Pulse Resp B/P (MAP) Pulse Ox O2 Delivery O2 Flow Rate FiO2 08/08/18 16:00 100.0 85 18 152/63 (92) 98 08/08/18 12:52 100.0 08/08/18 12:00 100.8 84 18 133/68 (89) 98 08/08/18 09:00 Room Air 08/08/18 08:24 99 151/79 08/08/18 08:00 98.9 89 16 151/79 (103) 99 08/08/18 05:00 101.0 08/08/18 04:00 100.8 103 20 143/79 (100) 96 08/08/18 00:00 101.2 91 20 145/72 (96) 96 08/07/18 21:00 Room Air 08/07/18 20:00 100.8 87 20 131/83 (99) 98 08/07/18 18:30 101.2 08/07/18 17:49 93 156/62 08/07/18 16:51 102.4 Height (Feet): 5 Height (Inches): 9.00 Weight (Pounds): 200 General Appearance: no acute distress HEENT: mucous membranes moist Respiratory/Chest: lungs clear Cardiovascular: normal rate Abdomen: soft, non tender Extremities: no edema Neurologic/Psychiatric: oriented x 3, responsive, normal mood/affect Microbiology Date/Time Source Procedure Growth Status 08/06/18 10:00 Blood Blood Culture - Preliminary NO GROWTH AFTER 24 HOURS Resulted 08/06/18 09:40 Blood Blood Culture - Preliminary NO GROWTH AFTER 24 HOURS Resulted 08/06/18 09:45 Indwelling Cath Urine Culture - Preliminary NO GROWTH AFTER 24 HOURS Resulted Laboratory Tests Test 08/08/18 06:58 White Blood Count 8.8 K/UL (4.8-10.8) Red Blood Count 3.70 M/UL (4.70-6.10) L Hemoglobin 12.0 G/DL (14.2-18.0) L Hematocrit 34.0 % (42.0-52.0) L Mean Corpuscular Volume 92 FL (80-99) Mean Corpuscular Hemoglobin 32.5 PG (27.0-31.0) H Mean Corpuscular Hemoglobin Concent 35.4 G/DL (32.0-36.0) Red Cell Distribution Width 10.2 % (11.6-14.8) L Platelet Count 141 K/UL (150-450) L Mean Platelet Volume 5.6 FL (6.5-10.1) L Neutrophils (%) (Auto) 74.9 % (45.0-75.0) Lymphocytes (%) (Auto) 16.4 % (20.0-45.0) L Monocytes (%) (Auto) 7.7 % (1.0-10.0) Eosinophils (%) (Auto) 0.0 % (0.0-3.0) Basophils (%) (Auto) 1.0 % (0.0-2.0) Sodium Level 142 MMOL/L (136-145) Potassium Level 3.2 MMOL/L (3.5-5.1) L Chloride Level 106 MMOL/L (98-107) Carbon Dioxide Level 29 MMOL/L (21-32) Anion Gap 7 mmol/L (5-15) Blood Urea Nitrogen 7 mg/dL (7-18) Creatinine 1.1 MG/DL (0.55-1.30) Estimat Glomerular Filtration Rate > 60 mL/min (>60) Glucose Level 135 MG/DL (74-106) H Calcium Level 8.8 MG/DL (8.5-10.1) Current Medications Medications (Trade) Dose Ordered Sig/Fanta Route PRN Reason Start Time Stop Time Status Last Admin Dose Admin Acetaminophen/ Hydrocodone Bitart ([place] [address]) 1 tab Q3H PRN ORAL pain/fever 08/08/18 06:00 08/12/18 17:59 08/08/18 12:22 Al Hydroxide/Mg Hydroxide (Mylanta) 30 ml Q6H PRN ORAL gerd/dyspepsia 08/05/18 18:00 09/04/18 17:59 Amlodipine Besylate (Norvasc) 2.5 mg BID ORAL 08/06/18 18:00 09/05/18 17:59 08/08/18 08:24 Ceftriaxone Sodium 1 gm/ Dextrose 55 ml @ 110 mls/hr Q24H IVPB 08/07/18 22:00 08/14/18 21:59 08/07/18 22:08 Clonidine HCl (Catapres Tab) 0.1 mg Q8H PRN ORAL SBP>160mmHg 08/05/18 18:00 09/04/18 17:59 Dextrose (Dextrose 50%) 25 ml Q30M PRN IV Hypoglycemia 08/06/18 19:30 09/05/18 19:29 Dextrose (Dextrose 50%) 50 ml Q30M PRN IV Hypoglycemia 08/06/18 19:30 09/05/18 19:29 Diphenhydramine HCl (Benadryl) 25 mg Q6H PRN ORAL Itching 08/05/18 18:00 09/04/18 17:59 Docusate Sodium (Colace) 100 mg TWICE A DAY ORAL 08/05/18 18:00 09/04/18 17:59 08/08/18 08:24 Gabapentin (Neurontin) 300 mg Q12HR ORAL 08/05/18 18:00 09/04/18 17:59 08/08/18 08:24 Insulin Aspart (NovoLOG) BEFORE MEALS AND HS SUBQ 08/06/18 21:00 09/05/18 20:59 08/08/18 06:27 Magnesium Hydroxide (Mom) 30 ml QIDPRN PRN ORAL Constipation 08/05/18 18:00 09/04/18 17:59 08/08/18 08:23 Ondansetron HCl (Zofran) 4 mg Q4H PRN IVP Nausea & Vomiting 08/05/18 18:00 09/04/18 17:59 08/06/18 08:45 Pantoprazole (Protonix) 40 mg BEDTIME ORAL 08/05/18 21:00 09/04/18 20:59 08/07/18 21:03 Phenol/Menthol (Chloraseptic) 1 spray Q3H PRN ORAL sore throat 08/05/18 18:30 09/04/18 18:29 08/05/18 18:59 Terazosin HCl (Hytrin) 10 mg BEDTIME ORAL 08/06/18 21:00 09/05/18 20:59 08/07/18 21:03 Garcia Mason MD Aug 08, 2018 16:26
--- NOTE | 2018-08-08 19:04 | Cardiology Progress Note ---
Assessment/Plan Assessment/Plan 1. History of L5-S1 anterior fusion and L4-L5 fusion, radiculopathy. 2. Postoperative fever. 3. History of prostate cancer treated with radiation. 4. History of hypertension. 5. History of borderline diabetes. has recurrent fever but alst 102 ws yest evening wbc remain fien his wound looks fine bp is ok will repeat labs in am home tomorrow if fever curve better and if ok with id Subjective Cardiovascular: Denies: chest pain, irregular heart rate, lightheadedness Respiratory: Denies: shortness of breath Gastrointestinal/Abdominal: Denies: abdominal pain Genitourinary: Denies: burning Objective Last 24 Hour Vital Signs Date Time Temp Pulse Resp B/P (MAP) Pulse Ox O2 Delivery O2 Flow Rate FiO2 08/08/18 18:39 99.1 08/08/18 17:44 101.4 08/08/18 17:11 85 152/63 08/08/18 16:00 100.0 85 18 152/63 (92) 98 08/08/18 12:00 100.8 84 18 133/68 (89) 98 08/08/18 09:00 Room Air 08/08/18 08:24 99 151/79 08/08/18 08:00 98.9 89 16 151/79 (103) 99 08/08/18 05:00 101.0 08/08/18 04:00 100.8 103 20 143/79 (100) 96 08/08/18 00:00 101.2 91 20 145/72 (96) 96 08/07/18 21:00 Room Air 08/07/18 20:00 100.8 87 20 131/83 (99) 98 General Appearance: no apparent distress Neck: supple Cardiovascular: normal rate, regular rhythm Respiratory/Chest: lungs clear Abdomen: normal bowel sounds, non tender, soft Extremities: no swelling Intake and Output 08/07/18 08/08/18 19:00 07:00 Intake Total 720 ml 55 ml Output Total 550 ml Balance 170 ml 55 ml Intake Oral 720 ml IV Total 55 ml Output Urine Total 550 ml # Voids 2 Laboratory Tests Test 08/08/18 06:58 White Blood Count 8.8 K/UL (4.8-10.8) Red Blood Count 3.70 M/UL (4.70-6.10) L Hemoglobin 12.0 G/DL (14.2-18.0) L Hematocrit 34.0 % (42.0-52.0) L Mean Corpuscular Volume 92 FL (80-99) Mean Corpuscular Hemoglobin 32.5 PG (27.0-31.0) H Mean Corpuscular Hemoglobin Concent 35.4 G/DL (32.0-36.0) Red Cell Distribution Width 10.2 % (11.6-14.8) L Platelet Count 141 K/UL (150-450) L Mean Platelet Volume 5.6 FL (6.5-10.1) L Neutrophils (%) (Auto) 74.9 % (45.0-75.0) Lymphocytes (%) (Auto) 16.4 % (20.0-45.0) L Monocytes (%) (Auto) 7.7 % (1.0-10.0) Eosinophils (%) (Auto) 0.0 % (0.0-3.0) Basophils (%) (Auto) 1.0 % (0.0-2.0) Sodium Level 142 MMOL/L (136-145) Potassium Level 3.2 MMOL/L (3.5-5.1) L Chloride Level 106 MMOL/L (98-107) Carbon Dioxide Level 29 MMOL/L (21-32) Anion Gap 7 mmol/L (5-15) Blood Urea Nitrogen 7 mg/dL (7-18) Creatinine 1.1 MG/DL (0.55-1.30) Estimat Glomerular Filtration Rate > 60 mL/min (>60) Glucose Level 135 MG/DL (74-106) H Calcium Level 8.8 MG/DL (8.5-10.1) Microbiology Date/Time Source Procedure Growth Status 08/06/18 10:00 Blood Blood Culture - Preliminary NO GROWTH AFTER 24 HOURS Resulted 08/06/18 09:40 Blood Blood Culture - Preliminary NO GROWTH AFTER 24 HOURS Resulted 08/06/18 09:45 Indwelling Cath Urine Culture - Preliminary NO GROWTH AFTER 24 HOURS Resulted Ciro Lucia MD Aug 08, 2018 19:04
[2018-08-08 20:33] VITALS: BP 133/81
[2018-08-08] MEDS: cefTRIAXone 1 GM in D5W 55 ML IVPB SCH (21:21)
[2018-08-09] VITALS: BP 122/65
[2018-08-09 04:00] VITALS: BP 121/53
[2018-08-09] MEDS: NovoLOG Insulin Flexpen SUBQ SCH ×2 (06:30→11:30)
[2018-08-09 08:00] VITALS: BP 155/74
[2018-08-09] MEDS: Docusate 100mg cap ORAL SCH (08:42)
[2018-08-09] MEDS: HYDROcodone/Acetamin 10/325 tab ORAL PRN (08:47)
--- NOTE | 2018-08-09 10:45 | Urology Progress Note ---
Assessment/Plan Assessment/Plan POD # 4, bilateral ureteral stents urinary retention prostate ca hx/XRT flomax dc'd hytrin voiding reinsert xavier PRN abx added f/u on blood cx Subjective Allergies: Coded Allergies: No Known Allergies (Unverified , 08/04/18) Subjective feels fair, xavier out, voiding, fevers Objective Last 24 Hour Vital Signs Date Time Temp Pulse Resp B/P (MAP) Pulse Ox O2 Delivery O2 Flow Rate FiO2 08/09/18 09:17 99.6 08/09/18 09:00 Room Air 08/09/18 08:43 96 155/74 08/09/18 08:00 99.6 96 18 155/74 (101) 100 08/09/18 04:00 98.5 84 18 121/53 (75) 100 08/09/18 00:00 98.9 78 18 122/65 (84) 95 08/08/18 21:00 Room Air 08/08/18 20:33 99.7 72 19 133/81 (98) 98 08/08/18 18:39 99.1 08/08/18 17:11 85 152/63 08/08/18 16:00 100.0 85 18 152/63 (92) 98 08/08/18 12:00 100.8 84 18 133/68 (89) 98 Intake and Output 08/08/18 08/09/18 19:00 07:00 Intake Total 815 ml Output Total 582 ml 900 ml Balance 233 ml -900 ml Intake Oral 515 ml IV Total 50 ml Other 250 ml Output Urine Total 250 ml 900 ml Drainage Total 52 ml Estimated Blood Loss 200 ml Other 80 ml # Voids 1 Microbiology Date/Time Source Procedure Growth Status 08/06/18 10:00 Blood Blood Culture - Preliminary NO GROWTH AFTER 48 HOURS Resulted 08/05/18 06:05 Nasal Nares MRSA Culture - Final NO METHICILLIN RESISTANT STAPH AUREUS... Complete 08/06/18 09:45 Indwelling Cath Urine Culture - Final NO GROWTH AFTER 48 HOURS Complete Current Medications Medications (Trade) Dose Ordered Sig/Fanta Route PRN Reason Start Time Stop Time Status Last Admin Dose Admin Acetaminophen/ Hydrocodone Bitart ([place] 10/325) 1 tab Q3H PRN ORAL pain/fever 08/08/18 06:00 08/12/18 17:59 08/09/18 08:47 Al Hydroxide/Mg Hydroxide (Mylanta) 30 ml Q6H PRN ORAL gerd/dyspepsia 08/05/18 18:00 09/04/18 17:59 Amlodipine Besylate (Norvasc) 2.5 mg BID ORAL 08/06/18 18:00 09/05/18 17:59 08/09/18 08:43 Ceftriaxone Sodium 1 gm/ Dextrose 55 ml @ 110 mls/hr Q24H IVPB 08/07/18 22:00 08/14/18 21:59 08/08/18 21:21 Clonidine HCl (Catapres Tab) 0.1 mg Q8H PRN ORAL SBP>160mmHg 08/05/18 18:00 09/04/18 17:59 Dextrose (Dextrose 50%) 25 ml Q30M PRN IV Hypoglycemia 08/06/18 19:30 09/05/18 19:29 Dextrose (Dextrose 50%) 50 ml Q30M PRN IV Hypoglycemia 08/06/18 19:30 09/05/18 19:29 Diphenhydramine HCl (Benadryl) 25 mg Q6H PRN ORAL Itching 08/05/18 18:00 09/04/18 17:59 Docusate Sodium (Colace) 100 mg TWICE A DAY ORAL 08/05/18 18:00 09/04/18 17:59 08/09/18 08:42 Gabapentin (Neurontin) 300 mg Q12HR ORAL 08/05/18 18:00 09/04/18 17:59 08/09/18 08:42 Insulin Aspart (NovoLOG) BEFORE MEALS AND HS SUBQ 08/06/18 21:00 09/05/18 20:59 08/08/18 06:27 Magnesium Hydroxide (Mom) 30 ml QIDPRN PRN ORAL Constipation 08/05/18 18:00 09/04/18 17:59 08/08/18 08:23 Ondansetron HCl (Zofran) 4 mg Q4H PRN IVP Nausea & Vomiting 08/05/18 18:00 09/04/18 17:59 08/06/18 08:45 Pantoprazole (Protonix) 40 mg BEDTIME ORAL 08/05/18 21:00 09/04/18 20:59 08/08/18 21:20 Phenol/Menthol (Chloraseptic) 1 spray Q3H PRN ORAL sore throat 08/05/18 18:30 09/04/18 18:29 08/05/18 18:59 Terazosin HCl (Hytrin) 10 mg BEDTIME ORAL 08/06/18 21:00 09/05/18 20:59 08/08/18 21:20 Height (Feet): 5 Height (Inches): 9.00 Weight (Pounds): 200 Objective abdomen soft ChanoshGraeme mckinley MD Aug 09, 2018 10:45
--- NOTE | 2018-08-09 10:53 | Infectious Diseases Prog Note ---
Assessment/Plan Assessment/Plan antibiotics : ceftriaxone A 1. fever post op 2. s/p lumbar fusion 3. diabetes mellitus 4. hypertension P 1. continue ceftriaxone 2. will follow up cultures Subjective Constitutional: Denies: fever, chills Respiratory: Denies: shortness of breath, dry cough Gastrointestinal/Abdominal: Denies: nausea, vomiting, diarrhea Musculoskeletal: Denies: pain Allergies: Coded Allergies: No Known Allergies (Unverified , 08/04/18) Objective Vital Signs Last 24 Hour Vital Signs Date Time Temp Pulse Resp B/P (MAP) Pulse Ox O2 Delivery O2 Flow Rate FiO2 08/09/18 09:17 99.6 08/09/18 09:00 Room Air 08/09/18 08:43 96 155/74 08/09/18 08:00 99.6 96 18 155/74 (101) 100 08/09/18 04:00 98.5 84 18 121/53 (75) 100 08/09/18 00:00 98.9 78 18 122/65 (84) 95 08/08/18 21:00 Room Air 08/08/18 20:33 99.7 72 19 133/81 (98) 98 08/08/18 18:39 99.1 08/08/18 17:11 85 152/63 08/08/18 16:00 100.0 85 18 152/63 (92) 98 08/08/18 12:00 100.8 84 18 133/68 (89) 98 Height (Feet): 5 Height (Inches): 9.00 Weight (Pounds): 200 Respiratory/Chest: lungs clear Cardiovascular: normal rate, regular rhythm, no gallop/murmur Abdomen: soft, non tender Extremities: no edema Current Medications Medications (Trade) Dose Ordered Sig/Fanta Route PRN Reason Start Time Stop Time Status Last Admin Dose Admin Acetaminophen/ Hydrocodone Bitart ([place] 10/325) 1 tab Q3H PRN ORAL pain/fever 08/08/18 06:00 08/12/18 17:59 08/09/18 08:47 Al Hydroxide/Mg Hydroxide (Mylanta) 30 ml Q6H PRN ORAL gerd/dyspepsia 08/05/18 18:00 09/04/18 17:59 Amlodipine Besylate (Norvasc) 2.5 mg BID ORAL 08/06/18 18:00 09/05/18 17:59 08/09/18 08:43 Ceftriaxone Sodium 1 gm/ Dextrose 55 ml @ 110 mls/hr Q24H IVPB 08/07/18 22:00 08/14/18 21:59 08/08/18 21:21 Clonidine HCl (Catapres Tab) 0.1 mg Q8H PRN ORAL SBP>160mmHg 08/05/18 18:00 09/04/18 17:59 Dextrose (Dextrose 50%) 25 ml Q30M PRN IV Hypoglycemia 08/06/18 19:30 09/05/18 19:29 Dextrose (Dextrose 50%) 50 ml Q30M PRN IV Hypoglycemia 08/06/18 19:30 09/05/18 19:29 Diphenhydramine HCl (Benadryl) 25 mg Q6H PRN ORAL Itching 08/05/18 18:00 09/04/18 17:59 Docusate Sodium (Colace) 100 mg TWICE A DAY ORAL 08/05/18 18:00 09/04/18 17:59 08/09/18 08:42 Gabapentin (Neurontin) 300 mg Q12HR ORAL 08/05/18 18:00 09/04/18 17:59 08/09/18 08:42 Insulin Aspart (NovoLOG) BEFORE MEALS AND HS SUBQ 08/06/18 21:00 09/05/18 20:59 08/08/18 06:27 Magnesium Hydroxide (Mom) 30 ml QIDPRN PRN ORAL Constipation 08/05/18 18:00 09/04/18 17:59 08/08/18 08:23 Ondansetron HCl (Zofran) 4 mg Q4H PRN IVP Nausea & Vomiting 08/05/18 18:00 09/04/18 17:59 08/06/18 08:45 Pantoprazole (Protonix) 40 mg BEDTIME ORAL 08/05/18 21:00 09/04/18 20:59 08/08/18 21:20 Phenol/Menthol (Chloraseptic) 1 spray Q3H PRN ORAL sore throat 08/05/18 18:30 09/04/18 18:29 08/05/18 18:59 Terazosin HCl (Hytrin) 10 mg BEDTIME ORAL 08/06/18 21:00 09/05/18 20:59 08/08/18 21:20 Samra Wells MD Aug 09, 2018 10:53
--- NOTE | 2018-08-09 11:00 | Progress Note ---
DATE: 08/09/2018 ACUTE PAIN MANAGEMENT PHYSICIAN PROGRESS NOTE MEDICATIONS: Medication administration record reviewed. Medications include Hytrin, Chloraseptic spray, Protonix, Zofran, milk of magnesia, [place], Neurontin, Colace, Benadryl, Catapres, Norvasc, and Mylanta. LABORATORY STUDIES: From yesterday, August 08, 2018, shows continued normal white count at 9, hematocrit 34, platelets 141. Sodium 142, potassium 3.2, chloride 106, bicarb 29, BUN 7, creatinine 1.1, glucose 135, and calcium 8.8. OBJECTIVE: VITAL SIGNS: Afebrile, pulse 84, respirations 18, oxygen saturation 100% on room air, and blood pressure 121/53. I saw the patient at the bedside with his brother and discussed with the nurse RN, [employer]. The patient continues to ambulate quite well. He appears non-toxic and his pain is well controlled using only oral analgesics. The patient was given a prescription for [place] for outpatient usage. The patient has been on IV Rocephin per Dr. Mason, and think the patient's fevers have finally defervesced. He has been afebrile for the past 12 hours, albeit he has been on IV antibiotics. I will speak with the surgeon, Dr. Branch, so that he can discuss with Dr. Mason, Infectious Disease specialist to determine if the patient can be a candidate for discharge home and if the patient requires home antibiotics or not. The patient is tolerating advancing diet and I did receive prune juice as a laxative. He will continue with his b.i.d. Neurontin, which he takes chronically for his chronic pain syndrome. The patient's blood pressure has been adequately managed. I will defer discharge plan to Dr. Branch, the attending physician. Kerri Issa JOB#: [id number] CC:
--- NOTE | 2018-08-09 11:04 | Cardiology Progress Note ---
Assessment/Plan Assessment/Plan The patient is stable no signs of infection on history or physical examination spoke to the nurse: if there is no fever above 100, can be discharged at 3 pm. Subjective Subjective The patient feels good, mild pain, no chills Objective Last 24 Hour Vital Signs Date Time Temp Pulse Resp B/P (MAP) Pulse Ox O2 Delivery O2 Flow Rate FiO2 08/09/18 09:17 99.6 08/09/18 09:00 Room Air 08/09/18 08:43 96 155/74 08/09/18 08:00 99.6 96 18 155/74 (101) 100 08/09/18 04:00 98.5 84 18 121/53 (75) 100 08/09/18 00:00 98.9 78 18 122/65 (84) 95 08/08/18 21:00 Room Air 08/08/18 20:33 99.7 72 19 133/81 (98) 98 08/08/18 18:39 99.1 08/08/18 17:11 85 152/63 08/08/18 16:00 100.0 85 18 152/63 (92) 98 08/08/18 12:00 100.8 84 18 133/68 (89) 98 General Appearance: no apparent distress EENT: PERRL/EOMI Neck: supple Rhythm: NSR Cardiovascular: normal rate Respiratory/Chest: lungs clear Abdomen: non tender Extremities: no swelling Neurologic: completion manager II-XII grossly normal Intake and Output 08/08/18 08/09/18 19:00 07:00 Intake Total 815 ml Output Total 582 ml 900 ml Balance 233 ml -900 ml Intake Oral 515 ml IV Total 50 ml Other 250 ml Output Urine Total 250 ml 900 ml Drainage Total 52 ml Estimated Blood Loss 200 ml Other 80 ml # Voids 1 Rola Fields MD Aug 09, 2018 11:04
[2018-08-09 12:00] VITALS: BP 142/74
[2018-08-09] MEDS ORDERED: Tubing IV Secondary IV ONE (14:32)
[2018-08-09] MEDS ORDERED: NS 275ml ONE (14:32)
--- NOTE | 2018-08-12 14:04 | Discharge Summary ---
Discharge Summary Hospital Course Date of Admission Aug 05, 2018 at 05:38 Date of Discharge Aug 09, 2018 at 15:45 Admitting Diagnosis Status post prior L4-L5 spinal fusion with residual L4-L5 and L5-S1 right- sided stenosis with advanced discogenic collapse, L5-S1. Reason for Hospitalization: elective surgery STEFANI Nickerson is a 63 year old male who was admitted on Aug 05, 2018 at 05:38 for status post prior L4-L5 spinal fusion with residual L4-L5 and L5-S1 right- sided stenosis with advanced discogenic collapse, L5-S1. Patient was admitted for elective surgery. Consultations dr Lucia - IM dr Patterson - pain specialist additional surgeons: dr. Schmid ( for vascular approach) dr Chaparro for insertion of bilateral ureteral stents to identify ureters ) Procedures s/p 08/05/[address] Branch 1. Wide and radical discectomy L5-S1. 2. Interbody fusion L5-S1 using 4WEB cage/BMP/local autograft/Signafuse bone. 3. Anterior plating using [employer] Spine Fang plate. 4. Use of fluoroscopy. s/p 08/05/[address] Chaparro (placement of ureteral stents) 1. Cystoscopy. 2. Urethral calibration. 3. Placement of bilateral open-ended ureteral stents. 4. Bilateral retrograde pyelogram. 5. Cystogram. s/p 08/05/[address] Schmid ( vascular approach) s/p Anterior retroperitoneal exposure L5-S1 vertebral interspace. s/p 08/[address] Branch 1. Posterior spinal fusion with interspinous fixation and instrumentation, L5-S1. 2. L5-S1 right-sided laminectomy and foraminotomy with neurolysis and decompression of L5 nerve root. 3. Redo laminectomy and complete facetectomy, L4-L5 right side. 4. Removal of hardware, L4-L5. 5. Use of local autograft as well as Signafuse for fusion purposes. 6. Use of fluoroscopy. 7. Neurodiagnostic monitoring. Hospital Course status post two parts spinal procedure ( anterior and posterior) with placement of bilateral ureteral stents to assist in surgery initially IV fluids perioperative antibiotics neurovascular status closely monitored, stable incision clean dry and intact Hemovac output clsoely monitored calves soft pain management addressed pain specialist followed; pain controlled hemodynamically stable ambulated with PT /OT fall precautions maintained; safe for ambulation tolerated diet , IV fluids discontinued GI prophylaxis provided antiemetics were on board as needed blood pressure was managed with current regimen , remained stable blood sugar was closely monitored voided freely bowel regimen instituted potassium replaced patient noted to have postoperative fevers workup negative: CXR no acute CP pathology, urine culture negative, blood cultures negative ID specialist followed, no fevers use of incentive spirometry and ambulation was encouraged patient was on broad spectrum antibiotics while in the hospital patient was stable for discharge antibiotics we re called to pharmacy for 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 Status post prior radiation for prostate CA requiring stent placement for safe approach to the spine. Radiculopathy, right lower extremity with stenosis at L4-L5 and L5-S1. Status post 08/05 anterior and posterior fusion L5-S1, , decompression L4-5-S1 R side, hardware removal L4-5- current surgery Postoperative fever ( negative workup) Hypokalemia History of prostate cancer ,( treated with radiation) Hypertension Borderline DM Discharge Medications Continued Medications: Hydrocodone Bit/Acetaminophen 10-325* ([place] 10-325*) 1 Each Tablet 1 TAB ORAL Q4H PRN for For Pain, #60 TAB 0 Refills (This prescription has been renewed) PRN PAIN Discharge Condition Upon Discharge: stable Discharge Disposition Patient was discharged to Home (01) Discharge Instructions Discharge Instructions Special Instructions I have been assigned to complete a D/C Summary on this account. I was not involved in the patient management Valeria Fowler NP Aug 12, 2018 14:04
== END 2018-08-09 15:45 | disposition home or self-care (01) | DRG 454 ==
LOC: SDSOVERFLO 05:38 → 4E 17:32 → 3E 21:15
PROC: 0SG0071 Fusion of Lumbar Vertebral Joint with Autologous Tissue Substitute, Posterior Approach, Posterior Column, Open Approach (ICD-10-PCS; principal; 2018-08-05 07:30)
PROC: 4A11X4G Monitoring of Peripheral Nervous Electrical Activity, Intraoperative, External Approach (ICD-10-PCS; principal; 2018-08-05 07:30)
PROC: 0SP00AZ Removal of Interbody Fusion Device from Lumbar Vertebral Joint, Open Approach (ICD-10-PCS; principal; 2018-08-05 07:30)
PROC: 0SG30A0 Fusion of Lumbosacral Joint with Interbody Fusion Device, Anterior Approach, Anterior Column, Open Approach (ICD-10-PCS; principal; 2018-08-05 07:30)
PROC: 0SG30J1 Fusion of Lumbosacral Joint with Synthetic Substitute, Posterior Approach, Posterior Column, Open Approach (ICD-10-PCS; principal; 2018-08-05 07:30)
PROC: 0T788DZ Dilation of Bilateral Ureters with Intraluminal Device, Via Natural or Artificial Opening Endoscopic (ICD-10-PCS; principal; 2018-08-05 07:30)
PROC: 0ST40ZZ Resection of Lumbosacral Disc, Open Approach (ICD-10-PCS; principal; 2018-08-05 07:30)
PROC: 3E0U0GB Introduction of Recombinant Bone Morphogenetic Protein into Joints, Open Approach (ICD-10-PCS; principal; 2018-08-05 07:30)
DX: M48.061 Spinal stenosis, lumbar region without neurogenic claudication (principal); J98.11 Atelectasis; M51.26 Other intervertebral disc displacement, lumbar region; M54.16 Radiculopathy, lumbar region; M54.17 Radiculopathy, lumbosacral region; M48.07 Spinal stenosis, lumbosacral region; Z98.1 Arthrodesis status; Z85.46 Personal history of malignant neoplasm of prostate; G89.4 Chronic pain syndrome; G89.18 Other acute postprocedural pain; I10 Essential (primary) hypertension; N40.1 Benign prostatic hyperplasia with lower urinary tract symptoms; R33.8 Other retention of urine; E11.9 Type 2 diabetes mellitus without complications; R50.82 Postprocedural fever; I95.89 Other hypotension; R11.0 Nausea
CPT/HCPCS: 36415; 71045; 72020; 74420; 76000; 76001; 80048; 80053; 81001; 82962; 85025; 86850; 86900; 86901; 87040; 87081; 87086; 94003; 94150; J1815; J2250; J2405; J2710; J8499